=== PATIENT | female | born 1930 | race Caucasian/White ===

== ENCOUNTER 2017-01-26 18:32 | Inpatient (IN) | payer OTHER ==
[2017-01-26] MEDS ORDERED: SODIUM CHLORIDE 1,000 ML IV ONE (18:52)
--- NOTE | 2017-01-26 18:52 | PDOC ---
History of Present Illness <Cecilio Neely - Last Filed: 01/26/17 20:56> - General History Source: Patient, Family, Old Records Exam Limitations: No Limitations - History of Present Illness Initial Comments: 01/26/17 20:03 The patient is an 86 year old female, with a significant past medical history of asthma, hypertension, hyperlipidemia, diabetes, PUD on PPI, osteoarthritis and dementia, who presents to the emergency department with two episodes of rectal bleeding within the past 2 hours. The patient additionally reports feeling lightheaded. The patient was at her normal baseline earlier today and states that this has never happened before. No history of any prior GI bleeds. The patient denies fever, chills, nausea, vomiting, diarrhea or any abdominal pain. The patient is on aspirin daily. The patient lives at home with family. The patients primary language is Georgian, patients family is at the bedside translating. Allergies: Penicillins, Fish Containing Products. Past Surgical History: None reported. Social History: Former smoker (quit in 1969). Denies alcohol or drug use. PCP: Dr. Ferreira <Marjorie Britt - Last Filed: 01/26/17 23:27> - General Chief Complaint: Rectal Bleed Stated Complaint: RECTAL BLEED Time Seen by Provider: 01/26/17 18:49 Past History - Past Medical History Anemia: No Asthma: Yes Cancer: No Cardiac Disorders: No CVA: No COPD: No CHF: No Dementia: No Diabetes: Yes (TYPE II) GI Disorders: Yes (ON RANEXA AND PANCREATIC ENZYMES) Disorders: No HTN: Yes Hypercholesterolemia: Yes Liver Disease: No Seizures: No Thyroid Disease: No - Surgical History Abdominal Surgery: No Appendectomy: No Cardiac Surgery: No Cholecystectomy: No Lung Surgery: No Neurologic Surgery: No Orthopedic Surgery: No - Immunization History Immunization Up to Date: Yes - Psycho/Social/Smoking Cessation Hx Anxiety: No Suicidal Ideation: No Smoking Status: No Smoking History: Former smoker Have you smoked in the past 12 months: No Number of Cigarettes Smoked Daily: 0 If you are a former smoker, when did you quit?: 1969 Information on smoking cessation initiated: No Hx Alcohol Use: No Drug/Substance Use Hx: No Substance Use Type: None Hx Substance Use Treatment: No <Cecilio Neely - Last Filed: 01/26/17 20:56> <Marjorie Britt - Last Filed: 01/26/17 23:27> - Past Medical History Allergies/Adverse Reactions: Allergies Allergy/AdvReac Type Severity Reaction Status Date / Time Fish Containing Products Allergy Unknown Verified 01/26/17 18:42 Penicillins Allergy Itching Verified 01/26/17 18:42 Home Medications: Ambulatory Orders Acetaminophen [Tylenol Extra Strength] 500 mg PO QID PRN #0 05/24/15 Albuterol Sulfate Inhaler - [Ventolin HFA Inhaler -] 2 inh PO Q4H PRN #0 Amlodipine Besylate [Norvasc -] 5 mg PO DAILY #0 05/24/15 Aspirin [Aspirin EC] 81 mg PO DAILY #0 05/24/15 Atorvastatin Ca [Lipitor] 40 mg PO HS #0 05/24/15 Calcium Carbonate/Vitamin D3 [Calcium 500-Vit D3 200 Caplet] 1 each PO BID #0 05/24/15 Ergocalciferol (Vitamin D2) [Drisdol] 50,000 units PO WEEKLY #0 05/24/15 Linaclotide [Linzess] 145 mcg PO DAILY #0 05/24/15 Memantine HCl [Namenda Xr] 7 mg PO DAILY #0 05/24/15 Mirabegron [Myrbetriq] 25 mg PO DAILY #0 05/24/15 Olmesartan Medoxomil [Benicar -] 20 mg PO DAILY #0 05/24/15 Omeprazole [Prilosec] 20 mg PO BID #0 05/24/15 Ranolazine [Ranexa] 1,000 mg PO Q12H #0 05/24/15 Sitagliptin Phosphate [Januvia] 100 mg PO DAILY #0 05/24/15 Vilazodone Hydrochloride [Viibryd -] 20 mg PO DAILY #0 05/24/15 Fluticasone/Salmeterol [Advair Hfa 230-21 Mcg Inhaler] 2 inh PO BID 10/16/15 Lipase/Protease/Amylase [Creon Dr 24,000 Units Capsule] 1 each PO BID 10/16/15 Meclizine HCl [Antivert -] 25 mg PO QID PRN #28 tablet 10/16/15 Metoprolol Succinate [Toprol Xl] 25 mg PO DAILY 10/16/15 Montelukast Na [Singulair -] 10 mg PO DAILY 10/16/15 Psyllium Husk/Aspartame [Metamucil Powder] 1 tsp PO ASDIR 10/16/15 Review of Systems - Review of Systems Constitutional: No: Chills, Fever Cardiac (ROS): Yes: Lightheadedness. No: Syncope ABD/GI: Yes: See HPI. No: Nausea, Vomiting : No: Dysuria Neurological: No: Headache All Other Systems: Reviewed and Negative <Cecilio Neely - Last Filed: 01/26/17 20:56> *Physical Exam - Vital Signs Last Vital Signs Temp Pulse Resp BP Pulse Ox 97.8 F 94 H 22 153/93 97 01/26/17 18:43 01/26/17 18:43 01/26/17 18:43 01/26/17 18:43 01/26/17 18:43 <Cecilio Neely - Last Filed: 01/26/17 20:56> - Vital Signs Last Vital Signs Temp Pulse Resp BP Pulse Ox 97.8 F 94 H 22 153/93 97 01/26/17 18:43 01/26/17 18:43 01/26/17 18:43 01/26/17 18:43 01/26/17 18:43 - Physical Exam Comments: 01/26/17 19:06 GENERAL: The patient is awake, alert, and fully oriented, in no acute distress. HEAD: Normal with no signs of trauma. EYES: Pupils equal, round and reactive to light, extraocular movements intact, sclera anicteric, conjunctiva clear with no pallor. ENT: Dry mucous membranes. Ears normal, nares patent, oropharynx clear without blood or exudates. NECK: Normal range of motion, supple without lymphadenopathy, JVD, or masses. LUNGS: Breath sounds equal, clear to auscultation bilaterally. No wheeze/ crackles. HEART: Regular rate and rhythm, normal S1 and S2 without murmur or rub. ABDOMEN: Diffuse abdominal discomfort. Soft/nondistended. BS wnl. No guarding or rebound. No palpable masses. No hepatosplenomegaly. EXTREMITIES: Normal range of motion, no edema. No clubbing or cyanosis. No cords , erythema, or tenderness. NEUROLOGICAL: Cranial nerves II through XII grossly intact. Normal speech, gait deferred. PSYCH: Normal mood, normal affect. SKIN: Warm, dry, normal turgor, no rashes or lesions noted. RECTAL EXAM: Gross red blood visualized in the rectum. <Marjorie Britt - Last Filed: 01/26/17 23:27> Heart Score/ECG Review #1 ECG reviewed & interpreted by me at: 18:55 General ECG Interpretation: Sinus Rhythm, Normal Rate (91), Normal Intervals ( LVH), No acute ischemic changes <Cecilio Neely - Last Filed: 01/26/17 20:56> ED Treatment Course - LABORATORY CBC & Chemistry Diagram: 01/26/17 20:17 01/26/17 18:52 - RADIOLOGY Radiology Studies Ordered: Category Date Time Status CHEST X-RAY PORTABLE* [RAD] Stat Radiology 01/26/17 18:52 Ordered <Cecilio Neely - Last Filed: 01/26/17 20:56> - LABORATORY CBC & Chemistry Diagram: 01/26/17 20:17 01/26/17 18:52 <Marjorie Britt - Last Filed: 01/26/17 23:27> Medical Decision Making - Critical Care Time Total Critical Care Time (minutes): 35 Critical Care Statement: The care of this patient involved high complexity decision making to prevent further life threatening deterioration of the patient 's condition and/or to evalute & treat vital organ system(s) failure or risk of failure. - Medical Decision Making 01/26/17 19:08 A portion of this note was documented by scribe services under my direction. I have reviewed the details of the note, within reason, and agree with the documentation with the following case summary and management plan written by me. 86-year-old female with multiple medical problems including PUD on PPI, heart disease on aspirin presents with 2 episodes of bright red blood per rectum with blood clots over the last 1-1.5 hours, no associated abdominal pain, positive lightheadedness. No known history of GI bleed or abdominal surgeries. Heart rate 90, blood pressure within normal limits. Abdomen soft and nondistended, no focal peritoneal findings, bright red blood visible per rectum. No obvious hemorrhoids. 86-year-old female with lower GI bleed, mild tachycardia but maintaining blood pressure at this time. Seems most consistent with diverticulosis, rule out upper GI bleed. Placed immediately on monitor and IV access obtained EKG is nonischemic Check labs start PPI, transfuse platelets given active bleeding on aspirin Close monitoring, will need admission, GI consult, possible ICU depending on workup and reassessments 01/26/17 20:41 Hemoglobin 11.9, previously 12.8 and 2015. BUN 19, creatinine normal. Had one further episode of bright red blood per rectum in the ED, low volume. Remained hemodynamically stable throughout. Began complaining of some abdominal discomfort, treated with morphine and will check CT of the abdomen and pelvis. Will proceed with admission, simply hospitalist covering Dr. Ferreira's. 01/26/17 20:55 Accepted for inpatient med/surg by Sandra/Paresh. Awaiting CTAP, platelets. GI budget controller (John Paul) consulted <Cecilio Neely - Last Filed: 01/26/17 20:56> - Medical Decision Making 01/26/17 23:27 EXAM: CT ABDOMEN & PELVIS W/O CONTR Reviewed By: Dr. Kendell Lau IMPRESSION: Diverticulosis without diverticulitis. No discrete evidence of GI bleed. <Marjorie Britt - Last Filed: 01/26/17 23:27> *DC/Admit/Observation/Transfer - Discharge Dispostion Admit: Yes <Cecilio Neely - Last Filed: 01/26/17 20:56> - Attestations Scribe Attestion: 01/26/17 19:04 Documentation prepared by Marjorie Britt, acting as medical manager for Cecilio Neely MD. <Marjorie Britt - Last Filed: 01/26/17 23:27> Diagnosis at time of Disposition: Lower GI hemorrhage - Referrals
[2017-01-26] MEDS ORDERED: PANTOPRAZOLE SODIUM 40 MG in SODIUM CHLORIDE 100 ML IVPB ONE (19:05)
[2017-01-26] MEDS ORDERED: PANTOPRAZOLE SODIUM 100 ML IVPB ONE (19:10)
[2017-01-26 19:40] LABS: BILIRUBIN,TOTAL 0.3 mg/dL (0.2-1.0); CALCIUM 8.7 mg/dL (8.5-10.1); CREATININE 0.9 mg/dL (0.55-1.02)
[2017-01-26 19:42] LABS: TOT PROT 7.9 g/dl (6.4-8.2)
[2017-01-26 20:28] LABS: TROPONIN I < 0.02 ng/ml (0.00-0.05)
[2017-01-26 20:35] LABS: BASOPHIL 0.5 % (0-2.0); MCH 32.7 pg (25.7-33.7); MCHC 33.6 g/dl (32.0-36.0); MEAN CELL VOLUME 97.3 fl (80-96); MEAN PLT VOLUME 7.4 fl (7.5-11.1); NEUTROPHILS 75.5 % (42.8-82.8); PLATELET COUNT 279 K/MM3 (134-434); RDW 13.5 % (11.6-15.6); WHITE BLOOD COUNT 10.4 K/mm3 (4.0-10.0)
[2017-01-26] MEDS ORDERED: ONDANSETRON 4 MG/2 ML VIAL IVPUSH ONE (20:39)
[2017-01-26] MEDS ORDERED: morphine CARPU-JECT 4 MG/1 ML DISP.SYRIN IVPUSH ONE (20:39)
[2017-01-26] MEDS ORDERED: morphine CARPU-JECT 4 MG/1 ML DISP.SYRIN ONE (20:43)
[2017-01-26] MEDS ORDERED: ONDANSETRON 4 MG/2 ML VIAL ONE (20:44)
[2017-01-26 20:49] LABS: INR 1.07 (0.82-1.09); PROTHROMBIN TIME (PATIENT) 11.8 SEC (9.98-11.88)
--- NOTE | 2017-01-26 20:52 | HP ---
CHIEF COMPLAINT: Rectal Bleeding, Abdominal Pain PCP: Dr. Alina Means HISTORY OF PRESENT ILLNESS: This is a 86 y/o woman with a past medical history of Asthma, HTN, HLD, DM, PUD (on PPI), OA, Dementia. Herpes Zoster (left flank). Who presents to the emergency department with her daughter for carl rectal bleeding with clots x earlier this evening. Patient is Belarusian speaking and has Dementia. Her daughter translated at bedside and provided the HPI. Per daughter, patient reports having several episodes of bright red blood without abdominal pain or cramping. Patient reports the abdominal pain began while in the ED. The patient denies fever, chills, cough, SOB, dizziness, CP, N/V, constipation, dysuria. Per hospital records patient had a Colonscopy 2006- negative, EGD 2010- negative. The daughter that is here with the mother is unaware of any recent colonoscopy or EGD. ER course was notable for: (1) CTAP- pending (2) NS bolus, Protonix IVPB given in ED (3) H/H no significant change from baseline Recent Travel: None PAST MEDICAL HISTORY: See HPI PAST SURGICAL HISTORY: Colonoscopy EGD Childbirth Social History: Smoking: Former Alcohol: None Drugs: None Family History: Father: Hypertension Mother: Hypertension Allergies Fish Containing Products Allergy (Unknown, Verified 01/26/17 18:42) Penicillins Allergy (Verified 01/26/17 18:42) Itching HOME MEDICATIONS: Home Medications Medication Instructions Recorded Acetaminophen [Tylenol Extra 500 mg PO QID PRN #0 05/24/15 Strength] Albuterol Sulfate Inhaler - 2 inh PO Q4H PRN #0 05/24/15 [Ventolin HFA Inhaler -] Amlodipine Besylate [Norvasc -] 5 mg PO DAILY #0 05/24/15 Aspirin [Aspirin EC] 81 mg PO DAILY #0 05/24/15 Atorvastatin Ca [Lipitor] 40 mg PO HS #0 05/24/15 Calcium Carbonate/Vitamin D3 1 each PO BID #0 05/24/15 [Calcium 500-Vit D3 200 Caplet] Ergocalciferol (Vitamin D2) 50,000 units PO WEEKLY #0 05/24/15 [Drisdol] Linaclotide [Linzess] 145 mcg PO DAILY #0 05/24/15 Memantine HCl [Namenda Xr] 7 mg PO DAILY #0 05/24/15 Mirabegron [Myrbetriq] 25 mg PO DAILY #0 05/24/15 Olmesartan Medoxomil [Benicar -] 20 mg PO DAILY #0 05/24/15 Omeprazole [Prilosec] 20 mg PO BID #0 05/24/15 Ranolazine [Ranexa] 1,000 mg PO Q12H #0 05/24/15 Sitagliptin Phosphate [Januvia] 100 mg PO DAILY #0 05/24/15 Vilazodone Hydrochloride [Viibryd 20 mg PO DAILY #0 05/24/15 -] Fluticasone/Salmeterol [Advair Hfa 2 inh PO BID 10/16/15 230-21 Mcg Inhaler] Lipase/Protease/Amylase [Creon Dr 1 each PO BID 10/16/15 24,000 Units Capsule] Meclizine HCl [Antivert -] 25 mg PO QID PRN #28 tablet 10/16/15 Metoprolol Succinate [Toprol Xl] 25 mg PO DAILY 10/16/15 Montelukast Na [Singulair -] 10 mg PO DAILY 10/16/15 Psyllium Husk/Aspartame [Metamucil 1 tsp PO ASDIR 10/16/15 Powder] REVIEW OF SYSTEMS Limited due to Dementia Hx CONSTITUTIONAL: Absent: fever, chills, diaphoresis, generalized weakness, malaise, loss of appetite, weight change HEENT: Absent: rhinorrhea, nasal congestion, throat pain, throat swelling, difficulty swallowing, mouth swelling, ear pain, eye pain, visual changes CARDIOVASCULAR: Absent: chest pain, syncope, palpitations, irregular heart rate, lightheadedness , peripheral edema RESPIRATORY: Absent: cough, shortness of breath, dyspnea with exertion, orthopnea, wheezing, stridor, hemoptysis GASTROINTESTINAL: abdominal pain, hematochezia Absent: abdominal distension, nausea, vomiting, diarrhea, constipation, melena GENITOURINARY: Absent: dysuria, frequency, urgency, hesitancy, hematuria, flank pain, genital pain MUSCULOSKELETAL: Absent: myalgia, arthralgia, joint swelling, back pain, neck pain SKIN: Absent: rash, itching, pallor HEMATOLOGIC/IMMUNOLOGIC: Absent: easy bleeding, easy bruising, lymphadenopathy, frequent infections ENDOCRINE: Absent: unexplained weight gain, unexplained weight loss, heat intolerance, cold intolerance NEUROLOGIC: Absent: headache, focal weakness or paresthesias, dizziness, unsteady gait, seizure, mental status changes, bladder or bowel incontinence PSYCHIATRIC: Absent: anxiety, depression, suicidal or homicidal ideation, hallucinations. PHYSICAL EXAMINATION Vital Signs - 24 hr 01/26/17 01/26/17 18:43 19:47 Temperature 97.8 F Pulse Rate 94 H Pulse Rate [ 89 Apical] Respiratory 22 24 Rate Blood Pressure 153/93 O2 Sat by Pulse 97 98 Oximetry (%) GENERAL: Awake, alert, and oriented to baseline, in no acute distress. HEAD: Normal with no signs of trauma. EYES: Pupils equal, round and reactive to light, extraocular movements intact, sclera anicteric, conjunctiva clear. No lid lag. EARS, NOSE, THROAT: Ears normal, nares patent, oropharynx clear without exudates. Moist mucous membranes. NECK: Normal range of motion, supple without lymphadenopathy, JVD, or masses. LUNGS: Breath sounds equal, clear to auscultation bilaterally. No wheezes, and no crackles. No accessory muscle use. HEART: Regular rate and rhythm, normal S1 and S2 without murmur, rub or gallop. ABDOMEN: Soft, generalized tenderness, distended, hypoactive bowel sounds, + guarding to RMQ, RLQ, no rebound, no masses. No hepatomegaly or splenomegaly. MUSCULOSKELETAL: Normal range of motion at all joints. No bony deformities or tenderness. No CVA tenderness. UPPER EXTREMITIES: 2+ pulses, warm, well-perfused. No cyanosis. No clubbing. Cap refill <2 seconds. No peripheral edema. LOWER EXTREMITIES: 2+ pulses, warm, well-perfused. No calf tenderness. No peripheral edema. NEUROLOGICAL: Cranial nerves II-XII intact. Normal speech. Gait not observed. PSYCHIATRIC: Cooperative. Good eye contact. Appropriate mood and affect. SKIN: Warm, dry, normal turgor, no rashes or lesions noted. Laboratory Results - last 24 hr 01/26/17 01/26/17 01/26/17 18:52 18:52 18:52 WBC Cancelled Corrected WBC (auto) Cancelled RBC Cancelled Hgb Cancelled Hct Cancelled MCV Cancelled MCHC Cancelled RDW Cancelled Plt Count Cancelled MPV Cancelled Neutrophils % Cancelled Lymphocytes % Cancelled Monocytes % Cancelled Eosinophils % Cancelled Basophils % Cancelled Differential Comment Cancelled Smudge Cells Cancelled Platelet Estimate Cancelled Platelet Comment Cancelled RBC Morphology Cancelled INR Cancelled Sodium 137 Potassium 4.3 Chloride 102 Carbon Dioxide 27 Anion Gap 8 BUN 19 H D Creatinine 0.9 Creat Clearance w eGFR 59.23 Random Glucose 222 H D Calcium 8.7 Total Bilirubin 0.3 AST 20 D ALT 15 D Alkaline Phosphatase 84 D Creatine Kinase Troponin I Total Protein 7.9 Albumin 4.0 01/26/17 01/26/17 01/26/17 18:52 20:17 20:17 WBC 10.4 H D Corrected WBC (auto) RBC 3.63 Hgb 11.9 Hct 35.4 MCV 97.3 H MCHC 33.6 RDW 13.5 Plt Count 279 MPV 7.4 L Neutrophils % 75.5 Lymphocytes % 15.1 D Monocytes % 7.9 Eosinophils % 1.0 Basophils % 0.5 Differential Comment Smudge Cells Platelet Estimate Platelet Comment RBC Morphology INR 1.07 Sodium Potassium Chloride Carbon Dioxide Anion Gap BUN Creatinine Creat Clearance w eGFR Random Glucose Calcium Total Bilirubin AST ALT Alkaline Phosphatase Creatine Kinase 79 Troponin I < 0.02 Total Protein Albumin ASSESSMENT/PLAN: This is a 86 y/o woman with a PMHx of: Asthma, HTN, HLD, DM, PUD, OA, Dementia, Herpes Zoster (left flank). Presents to the ED with bright red rectal bleeding with clots. Admitted for Lower GI Bleed for further evaluation of their emergent condition. Plan: 1. Lower GI Bleed - Likely secondary to Diverticulosis - CTAP- pending - IVF, Protonix given in ED - Platelets pending 2/2 Chronic ASA therapy - Appreciate GI Consult - NPO - Continue IVF - PPI - Stool Occult-pending 2. Abdominal Pain - See Above - Morphine Sulfate given in ED - Pain Mgmt prn 3. Hypertension - Monitor BP - Will hold BP meds for now 4. Diabetes Mellitus - BGMs - ISS - Hold home meds 5. Dementia - Hold meds for now, will resume pending GI eval 6. FEN - NS@75cc/hr - Replete lytes prn - NPO 7. DVT Prophylaxis - OOB - SCDs - Hold ACs secondary to GI Bleed Code Status: Full Code Problem List - Problem (1) Lower GI hemorrhage Code(s): K92.2 - GASTROINTESTINAL HEMORRHAGE, UNSPECIFIED (2) Abdominal pain Code(s): R10.9 - UNSPECIFIED ABDOMINAL PAIN Qualifiers: Abdominal location: right lower quadrant of abdomen (3) Diabetes Code(s): E11.9 - TYPE 2 DIABETES MELLITUS WITHOUT COMPLICATIONS Qualifiers: Diabetes mellitus type: type 2 Diabetes mellitus complication status: without complication (4) Hypertension Code(s): I10 - ESSENTIAL (PRIMARY) HYPERTENSION Qualifiers: Hypertension type: essential hypertension Qualified Code(s): I10 - Essential (primary) hypertension (5) HLD (hyperlipidemia) Code(s): E78.5 - HYPERLIPIDEMIA, UNSPECIFIED (6) Asthma Code(s): J45.909 - UNSPECIFIED ASTHMA, UNCOMPLICATED (7) PUD (peptic ulcer disease) Code(s): K27.9 - PEPTIC ULC, SITE UNSP, UNSP AC OR CHR, W/O HEMOR OR PERF (8) Dementia Code(s): F03.90 - UNSPECIFIED DEMENTIA WITHOUT BEHAVIORAL DISTURBANCE (9) DVT prophylaxis Code(s): EWS3022 - Visit type - Emergency Visit Emergency Visit: Yes ED Registration Date: 01/26/17 Care time: The patient presented to the Emergency Department on the above date and was hospitalized for further evaluation of their emergent condition. - New Patient This patient is new to me today: Yes Date on this admission: 01/26/17 - Critical Care Critical Care patient: No
[2017-01-26] MEDS ORDERED: SODIUM CHLORIDE 1,000 ML IV SCH (23:00)
[2017-01-27 01:23] VITALS: BMI 21.4
[2017-01-27 08:35] LABS: BASOPHIL 0.7 % (0-2.0); MCH 32.8 pg (25.7-33.7); MCHC 33.5 g/dl (32.0-36.0); MEAN CELL VOLUME 98.1 fl (80-96); MEAN PLT VOLUME 7.5 fl (7.5-11.1); PLATELET COUNT 279 K/MM3 (134-434); RDW 13.3 % (11.6-15.6); WHITE BLOOD COUNT 7.2 K/mm3 (4.0-10.0)
[2017-01-27 08:54] LABS: CALCIUM 8.4 mg/dL (8.5-10.1); CREATININE 0.5 mg/dL (0.55-1.02); MAGNESIUM 2.1 mg/dL (1.8-2.4); PHOSPHOROUS 3.1 mg/dL (2.5-4.9)
[2017-01-27] MEDS ORDERED: PANTOPRAZOLE SODIUM 100 ML IVPB SCH ×2 (10:00)
[2017-01-27 11:01] LABS: BASOPHIL 0.6 % (0-2.0); EOSINOPHIL 1.5 % (0-4.5); MCH 32.6 pg (25.7-33.7); MCHC 33.3 g/dl (32.0-36.0); MEAN CELL VOLUME 98.1 fl (80-96); MEAN PLT VOLUME 7.4 fl (7.5-11.1); NEUTROPHILS 68.7 % (42.8-82.8); PLATELET COUNT 297 K/MM3 (134-434); RDW 13.5 % (11.6-15.6); WHITE BLOOD COUNT 7.4 K/mm3 (4.0-10.0)
--- NOTE | 2017-01-27 11:39 | PN ---
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 I spoke with Dr Scott who will consult on Libby.
--- NOTE | 2017-01-27 11:55 | PN ---
Physical Exam: SUBJECTIVE: Patient seen and examined at the bedside, Having increased rectal bleeding with multiple clots. Dr. Denny was consulted by service. However, medical records reveal that patient is patient of Dr Leo and Dr Scott. OBJECTIVE: Vital Signs Period Temp Pulse Resp BP Sys/Nixon Pulse Ox Last 24 Hr 97.6 F-98.2 F 69-132 18-20 120-163/59-90 98 GENERAL: Dutch speaking, hx of dementia, alert to self. HEAD: Normal with no signs of trauma. EYES: PERRL, extraocular movements intact, sclera anicteric, conjunctiva clear. No ptosis. ENT: Ears normal, nares patent, oropharynx clear without exudates, moist mucous membranes. NECK: Trachea midline, full range of motion, supple. LUNGS: no accessory muscle use. HEART: Sinus tacy at 132 ABDOMEN: Soft, nontender, nondistended, generalized tenderness, distended, hypoactive bowel sounds EXTREMITIES: no edema. NEUROLOGICAL: Normal speech, gait not observed. PSYCH: hx of dementia Laboratory Results - last 24 hr 01/27/17 01/27/17 01/27/17 07:30 07:30 10:42 WBC 7.2 D 7.4 RBC 3.17 L 3.19 L Hgb 10.4 L D 10.4 L Hct 31.1 L 31.3 L MCV 98.1 H 98.1 H MCHC 33.5 33.3 RDW 13.3 13.5 Plt Count 279 297 MPV 7.5 7.4 L Neutrophils % 69.0 68.7 Lymphocytes % 20.8 D 21.2 Monocytes % 7.5 8.0 Eosinophils % 2.0 D 1.5 Basophils % 0.7 0.6 Sodium 145 Potassium 4.0 Chloride 109 H Carbon Dioxide 30 Anion Gap 6 L BUN 14 D Creatinine 0.5 L D Random Glucose 85 D Calcium 8.4 L Phosphorus 3.1 Magnesium 2.1 Active Medications Generic Name Dose Route Start Last Admin Trade Name Freq PRN Reason Stop Dose Admin Sodium Chloride 1,000 mls @ 75 mls/hr 01/26/17 23:00 Normal Saline - IV ASDIR JARETH Pantoprazole Sodium 100 mls @ 200 mls/hr 01/27/17 10:00 01/27/17 09:30 Protonix 40mg Ivpb (Pre-Docked) IVPB 200 mls/hr BID JARETH Administration ASSESSMENT/PLAN: Patient is a 86 year old female with a significant past medical history of Asthma, hypertension, HLD, diabetes, dementia. Herpes Zoster (left flank). She presents to the ED on 01/26/2017 with carl rectal bleeding bright red blood without abdominal pain or cramping. Per hospital records patient had a Colonoscopy in 2006, negative and an EGD 2010, which was also negative. Patient to be transferred to the ICU due to increased rectal bleeding with tachycardia. Daughter Klaudia informed that patient was transferred to ICU. Daughter Klaudia denies that pt ever had an TN. GI: Lower GI Bleed/Abdominal pain- acute Assessment/Plan: On NS @75 cc/hr Worsening rectal bleed wit numerous clots, pt transferred to ICU for closer monitoring H/H remained stable post bleed, will recheck at 1pm type and screen, transfuse if hmg/hct falls CTAP pending read Protonix increased to BID, will start protonix drip 1 units of platelets administered overnight for shelter ASA use NPO GI consulted and following Cardiology: Hypertension Assessment/Plan: Monitor BP BP meds on hold since NPO Endocrine: Diabetes Mellitus Assessment/Plan: monitor BGMS q 6 while NPO F.E.N. Fluids: Normal saline @100cc/hr Repeat CBC at 1pm NPO Protonix drip Prophylaxis DVT: SCDs GI: rectal bleed: Protonix drip Disposition: Requires inpatient hospitalization. Full Code Visit type - Emergency Visit Emergency Visit: Yes ED Registration Date: 01/26/17 Care time: The patient presented to the Emergency Department on the above date and was hospitalized for further evaluation of their emergent condition. - New Patient This patient is new to me today: Yes Date on this admission: 01/27/17 - Critical Care Critical Care patient: Yes Total Critical Care Time (in minutes): 45 Critical Care Statement: The care of this patient involved high complexity decision making to prevent further life threatening deterioration of the patient 's condition and/or to evalute & treat vital organ system(s) failure or risk of failure. - Discharge Referral Referred to [facility] No
--- NOTE | 2017-01-27 12:09 | CONSULT ---
Consult Consult Specialty:: PULM/CCM Referred by:: YAA Reason for Consultation:: GI Bleed - History of Present Illness Chief Complaint: GI Bleed History of Present Illness: 86 F, Asthma, HTN, HLD, DM, PUD OA, Dementia. and Herpes Zoster of the left flank. Brought to the ER by her family due to carl red blood with clots per rectum. Initially admitted to the medical floor and then noted to have 3 bloody bowel movements. Slight dropin H&H and tachycardia noted. Patient was subsequently transferred to the ICU for closer monitoring. No reported abdominal pain. CTA: no active bleed, but extensive diverticulosis. 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 Cardio/Vascular: Yes: HTN Gastrointestinal: Yes: Constipation Infectious Disease: Yes: Herpes Zoster (Left lower flank are with erythema based papules) Endocrine: Yes: Diabetes Mellitus - Past Surgical History Past Surgical History: Yes: None - Alcohol/Substance Use Hx Alcohol Use: No History of Substance Use: reports: None - Smoking History Smoking history: Former smoker Have you smoked in the past 12 months: No Aproximately how many cigarettes per day: 0 If you are a former smoker, when did you quit?: 1969 - Social History History of Recent Travel: No Home Medications - Allergies Allergies/Adverse Reactions: Allergies Allergy/AdvReac Type Severity Reaction Status Date / Time Fish Containing Products Allergy Unknown Verified 01/26/17 18:42 Penicillins Allergy Itching Verified 01/26/17 18:42 - Home Medications Home Medications: Ambulatory Orders Acetaminophen [Tylenol Extra Strength] 500 mg PO QID PRN #0 05/24/15 Albuterol Sulfate Inhaler - [Ventolin HFA Inhaler -] 2 inh PO Q4H PRN #0 Amlodipine Besylate [Norvasc -] 5 mg PO DAILY #0 05/24/15 Aspirin [Aspirin EC] 81 mg PO DAILY #0 05/24/15 Atorvastatin Ca [Lipitor] 40 mg PO HS #0 05/24/15 Calcium Carbonate/Vitamin D3 [Calcium 500-Vit D3 200 Caplet] 1 each PO BID #0 05/24/15 Ergocalciferol (Vitamin D2) [Drisdol] 50,000 units PO WEEKLY #0 05/24/15 Linaclotide [Linzess] 145 mcg PO DAILY #0 05/24/15 Memantine HCl [Namenda Xr] 7 mg PO DAILY #0 05/24/15 Mirabegron [Myrbetriq] 25 mg PO DAILY #0 05/24/15 Olmesartan Medoxomil [Benicar -] 20 mg PO DAILY #0 05/24/15 Omeprazole [Prilosec] 20 mg PO BID #0 05/24/15 Ranolazine [Ranexa] 1,000 mg PO Q12H #0 05/24/15 Sitagliptin Phosphate [Januvia] 100 mg PO DAILY #0 05/24/15 Vilazodone Hydrochloride [Viibryd -] 20 mg PO DAILY #0 05/24/15 Fluticasone/Salmeterol [Advair Hfa 230-21 Mcg Inhaler] 2 inh PO BID 10/16/15 Lipase/Protease/Amylase [Ingrid العلي 24,000 Units Capsule] 1 each PO BID 10/16/15 Meclizine HCl [Antivert -] 25 mg PO QID PRN #28 tablet 10/16/15 Metoprolol Succinate [Toprol Xl] 25 mg PO DAILY 10/16/15 Montelukast Na [Singulair -] 10 mg PO DAILY 10/16/15 Psyllium Husk/Aspartame [Metamucil Powder] 1 tsp PO ASDIR 10/16/15 Family Disease History - Family Disease History Family Disease History: Other: Father (), Mother () Review of Systems Unable to obtain ROS, reason: unable to obtain Physical Exam Vital Signs: Vital Signs Temperature 97.6 F 01/27/17 08:56 Pulse Rate 132 H 01/27/17 11:05 Respiratory Rate 20 01/27/17 11:05 Blood Pressure 143/90 01/27/17 11:05 O2 Sat by Pulse Oximetry (%) 98 01/26/17 22:13 Constitutional: Yes: No Distress, Thin Eyes: Yes: Conjunctiva Clear, EOM Intact. No: Sclera Icterus HENT: Yes: Atraumatic, Normocephalic Neck: Yes: Supple, Trachea Midline Cardiovascular: Yes: Tachycardia Respiratory: Yes: CTA Bilaterally. No: Accessory Muscle Use, Rales, Rhonchi, Stridor, Tachypnea, Wheezes Gastrointestinal: Yes: Normal Bowel Sounds, Soft, Rectal Bleeding. No: Palpable Mass, Pulsatile Mass, Tenderness, Epigastrium, Tenderness, Rebound ...Rectal Exam: Yes: Guaiac Positive Musculoskeletal: Yes: WNL Extremities: Yes: WNL Edema: No Peripheral Pulses WNL: Yes Integumentary: Yes: WNL Neurological: Yes: Alert Psychiatric: Yes: Alert Labs: CBC, BMP 01/27/17 10:42 01/27/17 07:30 Imaging - Results Chest X-ray: Report Reviewed, Image Reviewed Cat Scan: Report Reviewed, Image Reviewed Assessment/Plan IMP: Acute GI Bleed -> Suspected Lower due to Diverticulosis Asthma HTN HLD DM PUD OA Dementia Herpes Zoster of the left flank PLAN: Follow H&H Normal transfusion thresholds IVF NPO Strict I&O BD TX PRN GI evaluation Ensure adequate IV access ICU Monitoring Thank you. Dr Lai CCTime 35"
[2017-01-27 13:01] LABS: MCHC 33.6 g/dl (32.0-36.0); MEAN CELL VOLUME 98.4 fl (80-96); MEAN PLT VOLUME 7.1 fl (7.5-11.1); PLATELET COUNT 266 K/MM3 (134-434); RDW 13.8 % (11.6-15.6)
[2017-01-27] MEDS: SODIUM CHLORIDE 1,000 ML IV SCH (14:00)
[2017-01-27] MEDS: PANTOPRAZOLE SODIUM 80 MG in SODIUM CHLORIDE 100 ML IVPB SCH ×2 (15:00→22:15)
--- NOTE | 2017-01-27 16:59 | CON.GI ---
Consult Consult Specialty:: GI Referred by:: Hospitalist Reason for Consultation:: GI bleed - History of Present Illness Chief Complaint: acute onset of BRBPR History of Present Illness: 86 F with h/o HTN, PUD, DM, HLD, asthma admitted by family with BRBPR noted on the day of admission. She subsequently had 3 bloody BMs on the medical floor and was transfused to ICU. On admission Hgb 11.9. now 9.6. She denies pain, N/ V. States she is hungry. She has had colonoscopy in the past-unclear when. 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 Cardio/Vascular: Yes: HTN Gastrointestinal: Yes: Constipation Infectious Disease: Yes: Herpes Zoster (Left lower flank are with erythema based papules) Endocrine: Yes: Diabetes Mellitus - Past Surgical History Past Surgical History: Yes: None - Alcohol/Substance Use Hx Alcohol Use: No History of Substance Use: reports: None - Smoking History Smoking history: Former smoker Have you smoked in the past 12 months: No Aproximately how many cigarettes per day: 0 If you are a former smoker, when did you quit?: 1969 - Social History History of Recent Travel: No Home Medications - Allergies Allergies/Adverse Reactions: Allergies Allergy/AdvReac Type Severity Reaction Status Date / Time Fish Containing Products Allergy Unknown Verified 01/26/17 18:42 Penicillins Allergy Itching Verified 01/26/17 18:42 - Home Medications Home Medications: Ambulatory Orders Acetaminophen [Tylenol Extra Strength] 500 mg PO QID PRN #0 05/24/15 Amlodipine Besylate [Norvasc -] 5 mg PO DAILY #0 05/24/15 Aspirin [Aspirin EC] 81 mg PO DAILY #0 05/24/15 Atorvastatin Ca [Lipitor] 40 mg PO HS #0 05/24/15 Memantine HCl [Namenda Xr] 7 mg PO DAILY #0 05/24/15 Olmesartan Medoxomil [Benicar -] 20 mg PO DAILY #0 05/24/15 Omeprazole [Prilosec] 20 mg PO BID #0 05/24/15 Lipase/Protease/Amylase [Creon Dr 24,000 Units Capsule] 1 each PO BID 10/16/15 Meclizine HCl [Antivert -] 25 mg PO QID PRN #28 tablet 10/16/15 Metoprolol Succinate [Toprol Xl] 25 mg PO DAILY 10/16/15 Family Disease History - Family Disease History Family Disease History: Other: Father (), Mother () Physical Exam-GI Vital Signs: Vital Signs Temperature 97.6 F 01/27/17 08:56 Pulse Rate 132 H 01/27/17 11:05 Respiratory Rate 20 01/27/17 11:05 Blood Pressure 143/90 01/27/17 11:05 O2 Sat by Pulse Oximetry (%) 98 01/26/17 22:13 Constitutional: Yes: Well Nourished HENT: Yes: Normocephalic Neck: Yes: Trachea Midline Cardiovascular: Yes: Regular Rate and Rhythm Respiratory: Yes: CTA Bilaterally Gastrointestinal Inspection: Yes: WNL ...Auscultate: Yes: Normoactive Bowel Sounds ...Palpate: Yes: Soft. No: Tenderness (d) Labs: CBC, BMP 01/27/17 12:54 01/27/17 07:30 INR, PTT INR 1.07 (0.82-1.09) 01/26/17 20:17 Imaging - Results Cat Scan: Report Reviewed (Extensive diverticulosis with no diverticulitis. CTA with no extravasation of contrast.) Assessment/Plan 86 F with above history here with likely diverticular bleed. No bleed since transfer to ICU. Follow H/H If significant bleeding occurs may need to scope Clear liquids Transfuse if Hgb <8 80% if diverticular bleeds stop spontaneously. If bleeding continues will do therapeutic colonoscopy
[2017-01-27] MEDS: METOPROLOL TARTRATE 5 MG/5 ML VIAL IVPB SCH ×3 (18:08→18:33)
[2017-01-27 19:00] LABS: MCH 33.3 pg (25.7-33.7); MCHC 33.9 g/dl (32.0-36.0); MEAN CELL VOLUME 98.2 fl (80-96); MEAN PLT VOLUME 7.6 fl (7.5-11.1); PLATELET COUNT 269 K/MM3 (134-434); RDW 13.7 % (11.6-15.6); WHITE BLOOD COUNT 6.5 K/mm3 (4.0-10.0)
--- NOTE | 2017-01-27 20:23 | EKG ---
Test Reason : Blood Pressure : / mmHG Vent. Rate : 091 BPM Atrial Rate : 091 BPM P-R Int : 160 ms QRS Dur : 086 ms QT Int : 372 ms P-R-T Axes : 060 -05 054 degrees QTc Int : 457 ms NORMAL SINUS RHYTHM MODERATE VOLTAGE CRITERIA FOR LVH, MAY BE NORMAL VARIANT BORDERLINE ECG WHEN COMPARED WITH ECG OF 16-OCT-2015 16:16, NO SIGNIFICANT CHANGE WAS FOUND Confirmed by DARRIUS ROUSSEAU, ALESHA ([id number]) on 01/27/2017 8:23:40 PM Referred By: Confirmed By:ALESHA RIZO MD
[2017-01-28] MEDS: METOPROLOL TARTRATE 5 MG/5 ML VIAL IVPB SCH ×2 (00:25→06:53)
[2017-01-28 06:11] LABS: BASOPHIL 0.6 % (0-2.0); EOSINOPHIL 2.6 % (0-4.5); MCH 32.2 pg (25.7-33.7); MCHC 33.9 g/dl (32.0-36.0); MEAN PLT VOLUME 7.9 fl (7.5-11.1); NEUTROPHILS 73.3 % (42.8-82.8); PLATELET COUNT 269 K/MM3 (134-434); RDW 15.4 % (11.6-15.6); WHITE BLOOD COUNT 8.8 K/mm3 (4.0-10.0)
[2017-01-28 06:30] LABS: ANION GAP 6 (8-16); CO2 28 mmol/L (21-32); CREATININE 0.4 mg/dL (0.55-1.02); GLUCOSE,RANDOM 87 mg/dL (74-106); MAGNESIUM 1.9 mg/dL (1.8-2.4); PHOSPHOROUS 2.8 mg/dL (2.5-4.9); SGOT/AST 12 U/L (15-37); SGPT/ALT 12 U/L (12-78)
[2017-01-28 06:32] LABS: ALK PHOS 57 U/L (45-117); BILIRUBIN,TOTAL 0.5 mg/dL (0.2-1.0); TOT PROT 5.7 g/dl (6.4-8.2)
--- NOTE | 2017-01-28 11:41 | PN ---
Physical Exam: SUBJECTIVE: Patient seen and examined at bedside in ICU.A febrile overnight & hemodynamically stable. States abdominal tenderness is improved and she feels better than yesterday. Tolerating clear liquid diet well. Ambulates to bathroom without problems. OBJECTIVE: Vital Signs Period Temp Pulse Resp BP Sys/Nixon Pulse Ox Last 24 Hr 96.9 F-98.2 F 61-90 12-22 103-148/48-93 91-100 GENERAL: Awake and alert, Oriented to person & place but not oriented to situation. In no acute distress. HEENT: Atraumatic, EOMI, PERRLA, Moist membranes, no lymphadenopathy LUNGS: Breath sounds equal, clear to auscultation bilaterally HEART: Regular rate and rhythm, S1, S2 without murmur, rub or gallop ABDOMEN: Soft, nontender, nondistended, normoactive bowel sounds EXTREMITIES: 2+ pulses, warm, well-perfused, no edema NEUROLOGICAL: Cranial nerves II through XII grossly intact. Normal speech, normal gait. SKIN: Warm, dry, normal turgor, no rashes or lesions noted Laboratory Results - last 24 hr 01/27/17 01/27/17 01/27/17 12:54 12:59 15:00 WBC 9.0 RBC 2.91 L Hgb 9.6 L Hct 28.6 L MCV 98.4 H MCHC 33.6 RDW 13.8 Plt Count 266 MPV 7.1 L Neutrophils % Lymphocytes % Monocytes % Eosinophils % Basophils % Sodium Potassium Chloride Carbon Dioxide Anion Gap BUN Creatinine Creat Clearance w eGFR POC Glucometer 121 Random Glucose Calcium Phosphorus Magnesium Total Bilirubin AST ALT Alkaline Phosphatase Troponin I 0.02 Total Protein Albumin 01/27/17 01/27/17 01/28/17 18:40 23:58 05:00 WBC 6.5 RBC 2.51 L Hgb 8.4 L D Hct 24.6 L MCV 98.2 H MCHC 33.9 RDW 13.7 Plt Count 269 MPV 7.6 Neutrophils % Lymphocytes % Monocytes % Eosinophils % Basophils % Sodium 145 Potassium 3.7 Chloride 111 H Carbon Dioxide 28 Anion Gap 6 L BUN 11 D Creatinine 0.4 L Creat Clearance w eGFR > 60 POC Glucometer 95 Random Glucose 87 Calcium 8.0 L Phosphorus 2.8 Magnesium 1.9 Total Bilirubin 0.5 D AST 12 L D ALT 12 Alkaline Phosphatase 57 D Troponin I Total Protein 5.7 L D Albumin 3.0 L D 01/28/17 01/28/17 05:00 05:47 WBC 8.8 D RBC 2.93 L Hgb 9.4 L D Hct 27.8 L MCV 95.0 MCHC 33.9 RDW 15.4 D Plt Count 269 MPV 7.9 Neutrophils % 73.3 Lymphocytes % 15.2 D Monocytes % 8.3 Eosinophils % 2.6 Basophils % 0.6 Sodium Potassium Chloride Carbon Dioxide Anion Gap BUN Creatinine Creat Clearance w eGFR POC Glucometer 90 Random Glucose Calcium Phosphorus Magnesium Total Bilirubin AST ALT Alkaline Phosphatase Troponin I Total Protein Albumin Active Medications Generic Name Dose Route Start Last Admin Trade Name Freq PRN Reason Stop Dose Admin Sodium Chloride 1,000 mls @ 100 mls/hr 01/27/17 12:18 01/27/17 14:00 Normal Saline - IV 100 mls/hr ASDIR JARETH Administration Pantoprazole Sodium 100 mls @ 200 mls/hr 01/28/17 22:00 Protonix 40mg Ivpb (Pre-Docked) IVPB BID JARETH Metoprolol Succinate 25 mg 01/29/17 10:00 Toprol Xl - PO DAILY JARETH ASSESSMENT/PLAN: 86 year old demale with significant PMH of Asthma, HTN, HLD, DM, PUD (on PPI), OA, Dementia & Herpes Zoster who presented to ICU with acute bleeding from rectum x1 day. Patient also reports diffuse abdominal pain for same timeframe. Abdominal CTA shows extensive diverticulosis. #Acute GI bleed, likely secondary to diverticulosis -PPI -IVF NS@100cc/hr -tolerating clear liquid diet, upgrade as per GI -trend H/H -Received 1unit PRBC thus far -GI following #Hypertension -holding meds at present -can restart Toprol tomorrow #DM -BMG ACHS Prophylaxis -SCD's, PPI -IVF NS@100cc/hr, monitor electrolytes, Clear liquid diet Visit type - Emergency Visit Emergency Visit: Yes ED Registration Date: 01/26/17 Care time: The patient presented to the Emergency Department on the above date and was hospitalized for further evaluation of their emergent condition. - New Patient This patient is new to me today: Yes Date on this admission: 01/28/17 - Critical Care Critical Care patient: Yes Total Critical Care Time (in minutes): 45 Critical Care Statement: The care of this patient involved high complexity decision making to prevent further life threatening deterioration of the patient 's condition and/or to evalute & treat vital organ system(s) failure or risk of failure.
--- NOTE | 2017-01-28 11:59 | PN ---
Teaching Attending Note Name of Resident: Carmelo Solorzano ATTENDING PHYSICIAN STATEMENT I saw and evaluated the patient. I reviewed the resident's note and discussed the case with the resident. I agree with the resident's findings and plan as documented. SUBJECTIVE: Pt seen and examined in the ICU. No further bleeding. Denies abdominal pain, nausea or vomiting. Transfused 1 unit PRBC overnight with appropriate response in H/H. OBJECTIVE: Last Vital Signs Temp Pulse Resp BP Pulse Ox 98.2 F 69 16 153/85 91 L 01/28/17 10:00 01/28/17 11:07 01/28/17 10:00 01/28/17 10:00 01/28/17 11:07 Intake & Output 01/25/17 01/26/17 01/27/17 01/28/17 23:59 23:59 23:59 23:59 Intake Total 1300 1560 Output Total 200 Balance 1100 1560 Weight 133 lb 1 oz Gen: NAD at rest Heart: RRR Lung: decreased breath sounds at the bases Abd: soft, nontender Ext: no edema CBC, BMP 01/28/17 05:00 01/28/17 05:00 Active Medications Sodium Chloride (Normal Saline -) 1,000 mls @ 100 mls/hr IV ASDIR JARETH Last Admin: 01/27/17 14:00 Dose: 100 mls/hr Pantoprazole Sodium 40 mg/ (Sodium Chloride) 100 mls @ 200 mls/hr IVPB BID JARETH Metoprolol Succinate (Toprol Xl -) 25 mg PO DAILY JARETH ASSESSMENT AND PLAN: GI Bleed Acute Blood Loss Anemia Diverticulosis HTN Hyperlipidemia DM Dementia - monitor H/H - transfuse as needed - can likely stop protonix gtt but will defer to GI - start clears if ok with GI - resume cardiac meds - DVT prophylaxis - can monitor on floor
[2017-01-28] MEDS: SODIUM CHLORIDE 1,000 ML IV SCH (13:31)
[2017-01-28] MEDS ORDERED: SODIUM CHLORIDE 1,000 ML IV SCH (13:55)
[2017-01-28 14:02] LABS: BASOPHIL 0.6 % (0-2.0); EOSINOPHIL 3.2 % (0-4.5); MCHC 33.5 g/dl (32.0-36.0); MEAN CELL VOLUME 95.3 fl (80-96); MEAN PLT VOLUME 7.9 fl (7.5-11.1); NEUTROPHILS 71.2 % (42.8-82.8); PLATELET COUNT 235 K/MM3 (134-434); RDW 15.6 % (11.6-15.6); WHITE BLOOD COUNT 7.4 K/mm3 (4.0-10.0)
--- NOTE | 2017-01-28 15:42 | PN ---
Physical Exam: SUBJECTIVE: Patient seen and examined. She has been transferred from the ICU to a [facility] surgical floor. Family at bedside. No further rectal bleeding, s/p 1 unit of PRBC over night with good effect. As per family, pt is back to her baseline. Patient asking to go home. OBJECTIVE: Vital Signs Period Temp Pulse Resp BP Sys/Nixon Pulse Ox Last 24 Hr 97.0 F-98.2 F 61-95 12-16 103-153/48-93 91-100 GENERAL: Sami speaking, hx of dementia, alert to self. HEAD: Normal with no signs of trauma. EYES: PERRL, extraocular movements intact, sclera anicteric, conjunctiva clear. No ptosis. ENT: Ears normal, nares patent, oropharynx clear without exudates, moist mucous membranes. NECK: Trachea midline, full range of motion, supple. LUNGS: no accessory muscle use. HEART: Sinus tacy at 132 ABDOMEN: Soft, nontender, nondistended, generalized tenderness - no rectal bleeding overnight. EXTREMITIES: no edema. NEUROLOGICAL: Normal speech, gait not observed. PSYCH: hx of dementia 01/28/17 01/28/17 13:30 13:30 WBC 7.4 RBC 3.12 L Hgb 10.0 L Hct 29.7 L MCV 95.3 MCHC 33.5 RDW 15.6 Plt Count 235 MPV 7.9 Neutrophils % 71.2 Lymphocytes % 18.3 D Monocytes % 6.7 Eosinophils % 3.2 Basophils % 0.6 Sodium Potassium Chloride Carbon Dioxide Anion Gap BUN Creatinine Creat Clearance w eGFR POC Glucometer 166 Random Glucose Calcium Phosphorus Magnesium Total Bilirubin AST ALT Alkaline Phosphatase Troponin I Total Protein Albumin Generic Name Dose Route Start Last Admin Trade Name Freq PRN Reason Stop Dose Admin Pantoprazole Sodium 100 mls @ 200 mls/hr 01/28/17 22:00 Protonix 40mg Ivpb (Pre-Docked) IVPB BID JARETH Metoprolol Succinate 25 mg 01/29/17 10:00 Toprol Xl - PO DAILY JARETH ASSESSMENT/PLAN: Patient is a 86 year old female with a significant past medical history of Asthma, hypertension, HLD, diabetes, dementia. Herpes Zoster (left flank). She presents to the ED on 01/26/2017 with carl rectal bleeding bright red blood without abdominal pain or cramping. Per hospital records patient had a Colonoscopy in 2006, negative and an EGD 2010, which was also negative. Patient seen and examined at bedside, febrile overnight, hemodynamically stable s/p 1 unit of PRBC. Was transferred to ICU yesterday after had large episode of rectal bleeding with tachycardia. She is now on a medical surgical floor. She denies abdominal pain, tenderness. Tolerating clear liquid diet. No further rectal bleeding. GI: Lower GI Bleed/Abdominal pain- resolved Assessment/Plan: Was transferred to regular floor today s/p ICU monitoring overnight Remained afebrile overnight and hemodynamically stable. Denies any abdominal pain or tenderness, tolerating clears S/p 1 unit of PRBC, h/h remains stable/improved S/p protonix drip, now on Protonix BID GI following Cardiology: Hypertension Assessment/Plan: Monitor BP Back on PO meds of Toprox XL 25mg daily Endocrine: Diabetes Mellitus Assessment/Plan: Novolog sliding scale, monitor BGMs F.E.N. Fluids: Normal saline @100cc/hr Repeat CBC in the a.m. Clears Prophylaxis DVT: SCDs GI: Protonix BID: advance diet per GI Disposition: Requires inpatient hospitalization. If continues to improve, can d/c tomorrow per GI clearance. Full Code Visit type - Emergency Visit Emergency Visit: Yes ED Registration Date: 01/26/17 Care time: The patient presented to the Emergency Department on the above date and was hospitalized for further evaluation of their emergent condition. - New Patient This patient is new to me today: No - Critical Care Critical Care patient: No - Discharge Referral Referred to [facility] Med P.C.: No
[2017-01-28] MEDS: PANTOPRAZOLE SODIUM 100 ML IVPB SCH (21:17)
[2017-01-28] MEDS ORDERED: PANTOPRAZOLE SODIUM 100 ML IVPB SCH (22:00)
[2017-01-29 08:32] LABS: BASOPHIL 0.5 % (0-2.0); MCH 32.3 pg (25.7-33.7); MEAN CELL VOLUME 95.1 fl (80-96); MEAN PLT VOLUME 7.5 fl (7.5-11.1); NEUTROPHILS 68.9 % (42.8-82.8); PLATELET COUNT 277 K/MM3 (134-434); RDW 15.4 % (11.6-15.6)
[2017-01-29 08:51] LABS: ALBUMIN 3.7 g/dl (3.4-5.0); ANION GAP 8 (8-16); CO2 28 mmol/L (21-32); GLUCOSE,RANDOM 101 mg/dL (74-106); SGOT/AST 13 U/L (15-37); SGPT/ALT 13 U/L (12-78)
[2017-01-29 08:53] LABS: ALK PHOS 67 U/L (45-117); BILIRUBIN,TOTAL 0.4 mg/dL (0.2-1.0); CREATININE 0.5 mg/dL (0.55-1.02); TOT PROT 6.7 g/dl (6.4-8.2)
--- NOTE | 2017-01-29 09:30 | DS ---
Physical Exam: SUBJECTIVE: Patient seen and examined. Tolerating clears, no abdominal pain on exam. Denies nausea/vomiting. OBJECTIVE: Vital Signs Period Temp Pulse Resp BP Sys/Nixon Pulse Ox Last 24 Hr 97.6 F-98.6 F 66-95 16-18 123-156/56-94 91-95 PHYSICAL EXAM GENERAL: Bangladeshi speaking, hx of dementia, alert to self. HEAD: Normal with no signs of trauma. EYES: PERRL, extraocular movements intact, sclera anicteric, conjunctiva clear. No ptosis. ENT: Ears normal, nares patent, oropharynx clear without exudates, moist mucous membranes. NECK: Trachea midline, full range of motion, supple. LUNGS: no accessory muscle use. HEART: Sinus tacy at 132 ABDOMEN: Soft, nontender, non-distended, no tenderness - no rectal bleeding overnight, +bowel sounds, tolerating clears EXTREMITIES: no edema. NEUROLOGICAL: Normal speech, gait not observed. PSYCH: hx of dementia LABS Laboratory Results - last 24 hr 01/28/17 01/28/17 01/28/17 13:30 13:30 16:15 WBC 7.4 RBC 3.12 L Hgb 10.0 L Hct 29.7 L MCV 95.3 MCHC 33.5 RDW 15.6 Plt Count 235 MPV 7.9 Neutrophils % 71.2 Lymphocytes % 18.3 D Monocytes % 6.7 Eosinophils % 3.2 Basophils % 0.6 Sodium Potassium Chloride Carbon Dioxide Anion Gap BUN Creatinine Creat Clearance w eGFR POC Glucometer 166 91 Random Glucose Calcium Total Bilirubin AST ALT Alkaline Phosphatase Total Protein Albumin 01/28/17 01/29/17 01/29/17 21:56 05:38 07:15 WBC 6.0 RBC 3.27 L Hgb 10.6 L Hct 31.1 L MCV 95.1 MCHC 34.0 RDW 15.4 Plt Count 277 MPV 7.5 Neutrophils % 68.9 Lymphocytes % 20.7 Monocytes % 6.9 Eosinophils % 3.0 Basophils % 0.5 Sodium Potassium Chloride Carbon Dioxide Anion Gap BUN Creatinine Creat Clearance w eGFR POC Glucometer 75 91 Random Glucose Calcium Total Bilirubin AST ALT Alkaline Phosphatase Total Protein Albumin 01/29/17 07:15 WBC RBC Hgb Hct MCV MCHC RDW Plt Count MPV Neutrophils % Lymphocytes % Monocytes % Eosinophils % Basophils % Sodium 146 H Potassium 3.5 Chloride 110 H Carbon Dioxide 28 Anion Gap 8 BUN 7 D Creatinine 0.5 L D Creat Clearance w eGFR > 60 POC Glucometer Random Glucose 101 Calcium 9.0 Total Bilirubin 0.4 AST 13 L ALT 13 Alkaline Phosphatase 67 Total Protein 6.7 Albumin 3.7 D HOSPITAL COURSE: Date of Admission:01/26/17 Date of Discharge: 01/29/17 Patient is a 86 year old female with a significant past medical history of Asthma, hypertension, HLD, diabetes, dementia. Herpes Zoster (left flank- currently with no active lesions). She presents to the ED on 01/26/2017 with carl rectal bleeding bright red blood without abdominal pain or cramping. Per hospital records patient had a Colonoscopy in 2006, negative and an EGD 2010, which was also negative. Since the rectal bleeding episode on 01/27, she has had no further bleeding episodes. She is hemodynamically, stable s/p 1 unit of PRBC and tolerating clear liquid diet. She will need follow up with Dr. Scott in 1 week after discharge. Will hold ASA until seen by GI, will order Protonix daily. GI: Lower GI Bleed/Abdominal pain- resolved Assessment/Plan: Remained afebrile overnight and hemodynamically stable. Denies any abdominal pain or tenderness, tolerating clears S/p 1 unit of PRBC, h/h remains stable/improved Will follow up with GI as outpatient Cardiology: Hypertension Assessment/Plan: Monitor BP Back on PO meds of Toprox XL 25mg daily Endocrine: Diabetes Mellitus Assessment/Plan: Novolog sliding scale, monitor BGMs Disposition: Discharge today with outpatient GI follow-up. Full Code. Minutes to complete discharge: 45 Discharge Summary Reason For Visit: LOWER GI HEMORRHAGE Current Active Problems Asthma (Acute) DVT prophylaxis (Acute) Dementia (Acute) HLD (hyperlipidemia) (Acute) Lower GI hemorrhage (Acute) PUD (peptic ulcer disease) (Acute) - Instructions Referrals: Alina Goode MD [Primary Care Provider] - - Home Medications Comprehensive Discharge Medication List: Ambulatory Orders Acetaminophen [Tylenol Extra Strength] 500 mg PO QID PRN #0 05/24/15 Amlodipine Besylate [Norvasc -] 5 mg PO DAILY #0 05/24/15 Aspirin [Aspirin EC] 81 mg PO DAILY #0 05/24/15 Atorvastatin Ca [Lipitor] 40 mg PO HS #0 05/24/15 Memantine HCl [Namenda Xr] 7 mg PO DAILY #0 05/24/15 Olmesartan Medoxomil [Benicar -] 20 mg PO DAILY #0 05/24/15 Omeprazole [Prilosec] 20 mg PO BID #0 05/24/15 Lipase/Protease/Amylase [Ingrid العلي 24,000 Units Capsule] 1 each PO BID 10/16/15 Meclizine HCl [Antivert -] 25 mg PO QID PRN #28 tablet 10/16/15 Metoprolol Succinate [Toprol Xl] 25 mg PO DAILY 10/16/15 This patient is new to me today: No Emergency Visit: Yes ED Registration Date: 01/26/17 Care time: The patient presented to the Emergency Department on the above date and was hospitalized for further evaluation of their emergent condition. Critical Care patient: No - Discharge Referral Referred to [facility] Med P.C.: No
[2017-01-29 09:54] VITALS: BP 142/71; PULSE 89; TEMP 98.3
[2017-01-29] MEDS: PANTOPRAZOLE SODIUM 100 ML IVPB SCH (09:54)
[2017-01-29] MEDS ORDERED: METOPROLOL SUCCINATE 25 MG TAB.SR.24H (FP) PO SCH (10:00)
== END 2017-01-29 12:20 | disposition home or self-care (01) | DRG 378 ==
LOC: JER 18:32 → JERBED 20:56 → J5S 23:06 → JICU 01-27 11:35 → J5S 01-28 13:44
PROVIDERS: ADMIT Internal Medicine; ATTEND Nurse Practitioner Family
PROC: 30233R1 Transfusion of Nonautologous Platelets into Peripheral Vein, Percutaneous Approach (ICD-10-PCS; principal; 2017-01-27)
DX: K92.2 Gastrointestinal hemorrhage, unspecified (principal); D62 Acute posthemorrhagic anemia; I10 Essential (primary) hypertension; E78.5 Hyperlipidemia, unspecified; E11.9 Type 2 diabetes mellitus without complications; F03.90 Unspecified dementia, unspecified severity, without behavioral disturbance, psychotic disturbance, mood disturbance, and anxiety; K27.9 Peptic ulcer, site unspecified, unspecified as acute or chronic, without hemorrhage or perforation; Z87.891 Personal history of nicotine dependence; K57.91 Diverticulosis of intestine, part unspecified, without perforation or abscess with bleeding
CPT/HCPCS: 36415; 36430; 71010-TC; 74178-TC; 80048; 80053; 82272; 82550; 83735; 84100; 84484; 85025; 85027; 85610; 86850; 86900; 86901; 86922; 93005; 93010; 99283-25; P9034; P9058

== ENCOUNTER 2017-02-26 08:56 | Day surgery (SDC) | payer OTHER ==
[2017-02-25 14:48] VITALS: BMI 26.5
[2017-02-26] MEDS ORDERED: LIDOCAINE HCL/PF 2% SDV 5ML VIAL ONE (10:54)
[2017-02-26] MEDS ORDERED: PROPOFOL 20 ML ONE ×2 (10:54)
[2017-02-26] MEDS ORDERED: ESMOLOL HCL 10 ML ONE (11:32)
[2017-02-26 11:55] VITALS: TEMP 97.5
[2017-02-26 12:50] VITALS: BP 127/64; PULSE 66
== END 2017-02-26 12:52 | disposition home or self-care (01) ==
LOC: JASU-ENDO 08:56
PROVIDERS: ATTEND Internal Medicine Gastroenterology
PROC: 0DJD8ZZ Inspection of Lower Intestinal Tract, Via Natural or Artificial Opening Endoscopic (ICD-10-PCS; principal; 2017-02-26 10:00)
DX: D64.9 Anemia, unspecified (principal); Z86.010 Personal history of colon polyps; K57.30 Diverticulosis of large intestine without perforation or abscess without bleeding

== ENCOUNTER 2017-03-16 19:55 | Observation (INO) | payer OTHER ==
[2017-03-16 20:15] VITALS: BMI 28.3
--- NOTE | 2017-03-16 20:37 | PDOC ---
History of Present Illness - History of Present Illness Initial Comments: 03/16/17 20:58 The patient is an 86 year old female with a past medical hx of asthma, hypertension, hyperlipidemia, diabetes, PUD on PPI, osteoarthritis and dementia who presents to the ED s/p unwitnessed fall 45 minutes ago complaining of pain to the occipital region of her head. The patients friend reports she was standing on a stool cleaning the house when she fell onto the floor. The patient was able to get herself up off of the floor. It is uncertain if the patient lost consciousness. She reports her head was bleeding. The patient is not on blood thinners. The patient states she feels very tired. She denies any dizziness, headache, chest pain, SOB She denies any dysuria, hematuria, fever, chills Social: Lives at home alone <Heike Bustos - Last Filed: 03/17/17 01:45> - General History Source: Patient Exam Limitations: No Limitations <Meri Albarran - Last Filed: 03/19/17 11:56> - General Chief Complaint: Injury Stated Complaint: FALL/HEAD INJURY/LIGHTHEADED Time Seen by Provider: 03/16/17 20:12 Past History <Heike Bustos - Last Filed: 03/17/17 01:45> - Past Medical History Anemia: Yes Asthma: Yes Cancer: No Cardiac Disorders: No CVA: No COPD: No CHF: No Dementia: Yes (Alzheimer's) Diabetes: Yes (TYPE II) GI Disorders: Yes (DIVERTICULOSIS) Disorders: No HTN: Yes Hypercholesterolemia: Yes Liver Disease: No Seizures: No Thyroid Disease: No - Surgical History Abdominal Surgery: No Appendectomy: No Cardiac Surgery: No Cholecystectomy: No Lung Surgery: No Neurologic Surgery: No Orthopedic Surgery: No - Immunization History Immunization Up to Date: Yes - Psycho/Social/Smoking Cessation Hx Anxiety: No Suicidal Ideation: No Smoking Status: No Smoking History: Never smoked Have you smoked in the past 12 months: No Number of Cigarettes Smoked Daily: 0 If you are a former smoker, when did you quit?: 1969 Information on smoking cessation initiated: No Hx Alcohol Use: No Drug/Substance Use Hx: No Substance Use Type: None Hx Substance Use Treatment: No <Meri Albarran - Last Filed: 03/19/17 11:56> - Past Medical History Allergies/Adverse Reactions: Allergies Allergy/AdvReac Type Severity Reaction Status Date / Time Fish Containing Products Allergy Unknown Verified 03/16/17 20:10 Penicillins Allergy Itching Verified 03/16/17 20:10 Home Medications: Ambulatory Orders Memantine HCl [Namenda -] 10 mg PO DAILY 03/17/17 Metoprolol Tartrate 25 mg PO DAILY 03/17/17 Olmesartan/Hydrochlorothiazide [Benicar Hct 40-25 mg Tablet] 1 each PO DAILY Review of Systems - Review of Systems Able to Perform ROS?: Yes Comments:: 03/16/17 20:58 GENERAL/CONSTITUTIONAL: +Tired. No: fever, chills, weakness, loss of appetite. HEAD, EYES, EARS, NOSE AND THROAT: +Pain to head. No: change in vision, ear pain , discharge, sore throat, throat swelling. CARDIOVASCULAR: No: chest pain, lightheadedness, palpitations, syncope RESPIRATORY: No: cough, shortness of breath, wheezing, hemoptysis, stridor. GASTROINTESTINAL: No: nausea, vomiting, abdominal cramping, diarrhea, rectal bleeding, constipation. GENITOURINARY: No: dysuria, hematuria, frequency, urgency, flank pain. MUSCULOSKELETAL: No: back pain, neck pain, joint pain, muscle swelling or pain SKIN: No: lesions, pallor, rash or easy bruising. NEUROLOGIC: No: headache, vertigo, paresthesias, weakness ENDOCRINE: No: unexplained weight gain or loss HEMATOLOGIC/LYMPHATIC: No: anemia, easy bleeding, swelling nodes <Heike Bustos - Last Filed: 03/17/17 01:45> *Physical Exam - Vital Signs Last Vital Signs Temp Pulse Resp BP Pulse Ox 97.8 F 77 20 156/61 96 03/16/17 20:10 03/16/17 20:10 03/16/17 20:10 03/16/17 20:10 03/16/17 20:10 - Physical Exam Comments: 03/16/17 23:30 GENERAL: The patient is in no acute distress. HEAD:+Occipital hematoma EYES: PERRLA, EOMI, sclera anicteric, conjunctiva clear. ENT: Ears normal, nares patent, oropharynx clear without exudates. Moist mucous membranes. NECK: Normal range of motion, supple without lymphadenopathy, JVD, or masses. LUNGS: Breath sounds equal, clear to auscultation bilaterally. No wheezes, and no crackles. HEART:Regular rate and rhythm, normal S1 and S2 without murmur, rub or gallop. ABDOMEN: Soft, nontender, normoactive bowel sounds. No guarding, no rebound. EXTREMITIES: Normal range of motion, moving all extremities, no edema. No clubbing or cyanosis. No erythema, or tenderness. NEUROLOGICAL: Alert, responsive to questions. Sensation intact. Cranial nerves II through XII grossly intact. Normal speech. No focal neurological deficits. MUSCULOSKELETAL: Back nontender to palpation, no CVA tenderness SKIN: Warm, Dry, normal turgor, no rashes or lesions noted. <Heike Bustos - Last Filed: 03/17/17 01:45> - Vital Signs Last Vital Signs Temp Pulse Resp BP Pulse Ox 97.8 F 77 20 156/61 96 03/16/17 20:10 03/16/17 20:10 03/16/17 20:10 03/16/17 20:10 03/16/17 20:10 <Meri Albarran - Last Filed: 03/19/17 11:56> Heart Score/ECG Review #1 ECG reviewed & interpreted by me at: 00:47 03/17/17 00:47 Normal saline, rate of 64 bpm [place] normal intervals are normal: pr: 166ms, QRS: 88ms, QTc: no st elevations or depressions T waves mnl <Meri Albarran - Last Filed: 03/19/17 11:56> ED Treatment Course - LABORATORY CBC & Chemistry Diagram: 03/16/17 21:35 03/16/17 21:35 - RADIOLOGY Radiograph Interpretation: 03/16/17 23:20 EXAM: CT angiogram of the abdomen and pelvis with and without contrast IMAGES: [id number] INDICATION: GI bleed DATE OF SERVICE: 2017-01-26 21:37:45.0 COMPARISON: none FINDINGS: Lung bases are clear. The visualized cardiac chambers are normal size and configuration. Small hypodensity posterior aspect the right lobe representing cysts. Normal gallbladder, pancreas, spleen, adrenal glands and kidneys. The stomach and small bowel are normal. Extensive colonic diverticulosis is noted without diverticulitis. No evidence of acute GI bleeding. There is no aortic aneurysm. There is no significant retroperitoneal lymphadenopathy. The appendix is normal. The uterus and adnexal structures are normal. Urinary bladder is unremarkable. There is no pelvic free fluid. No discrete pelvic lymphadenopathy is identified. IMPRESSION: Diverticulosis without diverticulitis. No discrete evidence of GI bleeding. THIS DOCUMENT HAS BEEN ELECTRONICALLY SIGNED Kendell Lau MD 01/26/2017 23:13 EST EXAM: CT CERVICAL SPINE WITHOUT CONTRAST No acute fracture or malalignment cervical spine. Right occipital bone fracture as previously described. Multilevel spondylosis. THIS DOCUMENT HAS BEEN ELECTRONICALLY SIGNED Cesilia Cespedes M.D. 03/16/2017 23:03 EST EXAM: CT HEAD WITHOUT CONTRAST Acute minimally displaced fracture right occipital bone. Tiny acute subdural hematoma along right tentorium, 2 mm thick. No midline shift. No parenchymal hemorrhage, mass or acute territorial infarct. Age-related involutional changes and minimal chronic small vessel ischemic changes. Clear visualized paranasal sinuses. Visualized mastoid air cells clear. THIS DOCUMENT HAS BEEN ELECTRONICALLY SIGNED Cesilia Cespedes M.D. 03/16/2017 22:56 EST M.D. Please call Imaging Chart Picker [phone] ([phone]) with questions. 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 Tiny acute subdural hematoma along right tentorium, 2 mm thick. No midline shift. No parenchymal hemorrhage, mass or acute territorial infarct. Age-related involutional changes and minimal chronic small vessel ischemic changes. Clear visualized paranasal sinuses. Visualized mastoid air cells clear. THIS DOCUMENT HAS BEEN ELECTRONICALLY SIGNED Cesilia Cespedes M.D. 03/16/2017 22:56 EST <Heike Bustos - Last Filed: 03/17/17 01:45> - LABORATORY CBC & Chemistry Diagram: 03/17/17 06:30 03/17/17 06:30 <Meri Albarran - Last Filed: 03/19/17 11:56> Medical Decision Making - Critical Care Time Total Critical Care Time (minutes): 35 Critical Care Statement: The care of this patient involved high complexity decision making to prevent further life threatening deterioration of the patient 's condition and/or to evalute & treat vital organ system(s) failure or risk of failure. - Medical Decision Making I, Dr. Meri Albarran, attest that this document has been prepared under my direction and personally reviewed by me in its entirety. I further attest, that it accurately reflects all work, treatment, procedures and medical decision -making performed by me. This is an 86 yo F h/o DM, HTN presenting to the ER s/p fall with head trauma Pt was reportedly stepped up on something to try to clean she lost her balance and fell backwards, striking her head Pt unsure if she had preceding chest pain, shortness of breath, palpitations She remembers hitting the ground Pt denies LOC or amnesia Pt complains of occipital pain On examination Motor and sensation intact Pt speaking with clear sentences Answering questions at her baseline DD: head trauma, concussion, ICH Laboratory Tests 03/16/17 03/16/17 21:35 21:35 WBC 8.4 D Hgb 12.1 D Hct 36.0 D Plt Count 275 Neutrophils % 73.0 Lymphocytes % 15.1 D Sodium 140 Potassium 4.8 D Chloride 103 Carbon Dioxide 29 BUN 17 D Creatinine 0.6 Random Glucose 89 Creatine Kinase 78 Troponin I < 0.02 03/16/17 22:55 Called by imaging personal lines advisor re: this patient Small Right occipital fracture, small subdural hematoma (1-2mm) Call placed to Dr Goldberg Poor connection, unable to speak with him 03/17/17 00:34 03/17/17 00:38 Pt admitted to the hospitalist service Will contact Dr goldberg again 03/17/17 01:10 Dr goldberg has called the Er several times His connection is not good because [place] in an [place] will place this patient on observation will place on tele so that she can be closely monitored for any neurological changes will: place on observation NSGY consult Clinical impression: fall, head trauma, Subdural hematoma, occipital fracture <Meri Albarran - Last Filed: 03/19/17 11:56> *DC/Admit/Observation/Transfer - Attestations Scribe Attestion: 03/16/17 20:58 Documentation prepared by Heike Bustos, acting as medical editor for Meri Albarran MD/DO. <Heike Bustos - Last Filed: 03/17/17 01:45> - Discharge Dispostion Admit: Yes <Meri Albarran - Last Filed: 03/19/17 11:56> Diagnosis at time of Disposition: Subdural hematoma Occipital bone fracture Qualifiers: Encounter type: initial encounter Fracture type: closed Occipital fracture type : unspecified fracture of occiput Laterality: right Qualified Code(s): S02.119A - Unspecified fracture of occiput, initial encounter for closed fracture - Discharge Dispostion Disposition: HOME Condition at time of disposition: Improved
[2017-03-16 21:45] LABS: BASOPHIL 0.8 % (0-2.0); EOSINOPHIL 1.2 % (0-4.5); MCH 32.6 pg (25.7-33.7); MCHC 33.6 g/dl (32.0-36.0); MEAN CELL VOLUME 97.1 fl (80-96); MEAN PLT VOLUME 7.5 fl (7.5-11.1); PLATELET COUNT 275 K/MM3 (134-434); RDW 15.4 % (11.6-15.6); WHITE BLOOD COUNT 8.4 K/mm3 (4.0-10.0)
[2017-03-16 22:07] LABS: ANION GAP 8 (8-16); BILIRUBIN,TOTAL 0.2 mg/dL (0.2-1.0); CALCIUM 9.3 mg/dL (8.5-10.1); CO2 29 mmol/L (21-32); COCKROFT - GAULT 68.5865; CREATININE 0.6 mg/dL (0.55-1.02); GLUCOSE,RANDOM 89 mg/dL (74-106); SGPT/ALT 20 U/L (12-78); TOT PROT 7.5 g/dl (6.4-8.2)
[2017-03-16 22:09] LABS: ALK PHOS 70 U/L (45-117); TROPONIN I < 0.02 ng/ml (0.00-0.05)
[2017-03-16 22:10] LABS: SGOT/AST 20 U/L (15-37)
[2017-03-16] MEDS ORDERED: ACETAMINOPHEN 325 MG TABLET (FP) ONE (23:24)
[2017-03-16] MEDS ORDERED: ACETAMINOPHEN 325 MG TABLET (FP) PO ONE (23:58)
--- NOTE | 2017-03-17 00:37 | PN ---
<Tuan Mancera - Last Filed: 03/17/17 00:36> Teaching Attending Note Name of Resident: Carmelo Solorzano ATTENDING PHYSICIAN STATEMENT I saw and evaluated the patient. I reviewed the resident's note and discussed the case with the resident. I agree with the resident's findings and plan as documented. SUBJECTIVE: OBJECTIVE: ASSESSMENT AND PLAN: <DenisSarthak - Last Filed: 03/17/17 02:18> Teaching Attending Note ATTENDING PHYSICIAN STATEMENT I saw and evaluated the patient. I reviewed the resident's note and discussed the case with the resident. I agree with the resident's findings and plan as documented. Imaging data and chart reviewed. SUBJECTIVE: The patient is an 86 year old female with a past medical hx of asthma, hypertension, hyperlipidemia, diabetes, PUD on PPI, osteoarthritis and dementia who presented to the ED s/p unwitnessed fall at 7pm on 03/16/17 for evaluation of pain to the occipital region of her head. The patient's reported she was standing on a stool cleaning the house when she fell onto the floor. The patient was able to get herself up off of the floor. It is uncertain if the patient lost consciousness. She noted her head was bleeding. The patient is not on blood thinners or aspirin. As per family patient is at her baseline functional and mental status. OBJECTIVE: Vital Signs: Last Vital Signs Temp Pulse Resp BP Pulse Ox 97.8 F 77 20 156/61 96 03/16/17 20:10 03/16/17 20:10 03/16/17 20:10 03/16/17 20:10 03/16/17 20:10 GENERAL: (+) Awake, alert, and oriented to place, in no acute distress. HEENT: Moist mucosa. Normocephalic. No sinus tenderness. No LAD. No visible wounds on scalp. Scalp is nontender. NECK: No JVD. No thyroid masses. Supple. LUNGS: Clear to auscultation bilaterally. No wheezing, rhonchi or rales. HEART: Regular rate and rhythm, normal S1 and S2, no murmurs, rubs or gallops, peripheral pulses normal and equal bilaterally. ABDOMEN: Soft, nontender, normoactive bowel sounds. No guarding, no rebound. No Masses. MUSCULOSKELETAL: No joint tenderness or erythema. No muscle tenderness. Normal muscle bulk and tone. EXTREMITIES: Normal inspection, No edema. No clubbing or cyanosis. Moves all extremities. Labs: CBCD WBC 8.4 K/mm3 (4.0-10.0) D 03/16/17 21:35 RBC 3.70 M/mm3 (3.60-5.2) 03/16/17 21:35 Hgb 12.1 GM/dL (10.7-15.3) D 03/16/17 21:35 Hct 36.0 % (32.4-45.2) D 03/16/17 21:35 MCV 97.1 fl (80-96) H 03/16/17 21:35 MCHC 33.6 g/dl (32.0-36.0) 03/16/17 21:35 RDW 15.4 % (11.6-15.6) 03/16/17 21:35 Plt Count 275 K/MM3 (134-434) 03/16/17 21:35 MPV 7.5 fl (7.5-11.1) 03/16/17 21:35 CMP Sodium 140 mmol/L (136-145) 03/16/17 21:35 Potassium 4.8 mmol/L (3.5-5.1) D 03/16/17 21:35 Chloride 103 mmol/L (98-107) 03/16/17 21:35 Carbon Dioxide 29 mmol/L (21-32) 03/16/17 21:35 Anion Gap 8 (8-16) 03/16/17 21:35 BUN 17 mg/dL (7-18) D 03/16/17 21:35 Creatinine 0.6 mg/dL (0.55-1.02) 03/16/17 21:35 Creat Clearance w eGFR > 60 (>60) 03/16/17 21:35 Calcium 9.3 mg/dL (8.5-10.1) 03/16/17 21:35 Total Bilirubin 0.2 mg/dL (0.2-1.0) D 03/16/17 21:35 AST 20 U/L (15-37) D 03/16/17 21:35 ALT 20 U/L (12-78) D 03/16/17 21:35 Alkaline Phosphatase 70 U/L (45-117) 03/16/17 21:35 Total Protein 7.5 g/dl (6.4-8.2) 03/16/17 21:35 Albumin 4.0 g/dl (3.4-5.0) 03/16/17 21:35 Imaging: EXAM DATE AND TIME: 2017-03-16 22:28:51.0 EXAM: CT HEAD WITHOUT CONTRAST Acute minimally displaced fracture right occipital bone. Tiny acute subdural hematoma along right tentorium, 2 mm thick. No midline shift. No parenchymal hemorrhage, mass or acute territorial infarct. Age-related involutional changes and minimal chronic small vessel ischemic changes. Clear visualized paranasal sinuses. Visualized mastoid air cells clear. THIS DOCUMENT HAS BEEN ELECTRONICALLY SIGNED Cesilia Cespedes M.D. 03/16/2017 22:56 EST EXAM DATE AND TIME: 2017-03-16 22:26:15.0 EXAM: CT CERVICAL SPINE WITHOUT CONTRAST No acute fracture or malalignment cervical spine. Right occipital bone fracture as previously described. Multilevel spondylosis. THIS DOCUMENT HAS BEEN ELECTRONICALLY SIGNED Cesilia Cespedes M.D. 03/16/2017 23:03 EST DATE OF SERVICE: 2017-01-26 21:37:45.0 COMPARISON: none FINDINGS: Lung bases are clear. The visualized cardiac chambers are normal size and configuration. Small hypodensity posterior aspect the right lobe representing cysts. Normal gallbladder, pancreas, spleen, adrenal glands and kidneys. The stomach and small bowel are normal. Extensive colonic diverticulosis is noted without diverticulitis. No evidence of acute GI bleeding. There is no aortic aneurysm. There is no significant retroperitoneal lymphadenopathy. The appendix is normal. The uterus and adnexal structures are normal. Urinary bladder is unremarkable. There is no pelvic free fluid. No discrete pelvic lymphadenopathy is identified. IMPRESSION: Diverticulosis without diverticulitis. No discrete evidence of GI bleeding. THIS DOCUMENT HAS BEEN ELECTRONICALLY SIGNED Kendell Lau MD 01/26/2017 23:13 EST ASSESSMENT AND PLAN: 1. 86 year old female s/p fall with trauma to occipital region and 1-2 mm subdural occipital hematoma and acute minimally displaced fracture right occipital bone. Clinically stable with normal neuro exam. - Avoid heparin - Neuro checks Q4H - Fall precautions - Neurosurgery consult - Avoid aspirin or other anti quaaludes - NPO for now - Finger sticks - Sliding scale - Serial head CT 2. Chronic medical problems - pending home medication confirmation from family - Will restart home medications after they are confirmed 3. DVT PPX - low risk - SCDs Admit to observation Documentation prepared by Sarthak Barrios, acting as medical assembly for Dr. Tuan Mancera MD.
--- NOTE | 2017-03-17 00:42 | HP ---
CHIEF COMPLAINT: Mechanical Fall PCP: Dr. Alina Means HISTORY OF PRESENT ILLNESS: Patient is a 86 year old female with PMH of HTN, HLD, DM, Asthma, PUD on PPI, Diverticulosis, OA & Dementia who presented to ED s/p fall. As per patient, she was standing on a foot stool cleaning her kitchen cabinets when she slipped off the stool and fell to the ground. She denies any chest pain, SOB, headache, dizziness, palpitations or other symptoms prior to fall. She hit the back of her head on the floor, but did not lose consciousness. She had some minor bleeding from the site of impact. She has had a moderate headache since the fall but otherwise feels normal. Denies fever, chills, dysuria, diarrhea, constipation, CP, SOB. ER course was notable for: (1)CT HEAD WITHOUT CONTRAST Acute minimally displaced fracture right occipital bone. Tiny acute subdural hematoma along right tentorium, 2 mm thick. (2)EKG: NSR Troponin (-) x1 (3) Recent Travel: NONE REPORTED PAST MEDICAL HISTORY: ABOVE PAST SURGICAL HISTORY: Colonoscopy EGD Childbirth Social History: Smoking:FORMER ("LONG TIME AGO") Alcohol:NONE REPORTED Drugs:NONE REPORTED Family History: UNSURE Allergies Fish Containing Products Allergy (Unknown, Verified 03/16/17 20:10) Penicillins Allergy (Verified 03/16/17 20:10) Itching HOME MEDICATIONS: Home Medications Medication Instructions Recorded Acetaminophen [Tylenol Extra 500 mg PO QID PRN #0 05/24/15 Strength] Atorvastatin Ca [Lipitor] 40 mg PO HS #0 05/24/15 Memantine HCl [Namenda Xr] 7 mg PO DAILY #0 05/24/15 Olmesartan Medoxomil [Benicar -] 20 mg PO DAILY #0 05/24/15 Lipase/Protease/Amylase [Ingrid العلي 1 each PO BID 10/16/15 24,000 Units Capsule] Meclizine HCl [Antivert -] 25 mg PO QID PRN #28 tablet 10/16/15 Metoprolol Succinate [Toprol Xl] 25 mg PO DAILY 10/16/15 Pantoprazole Sodium [Protonix] 40 mg PO DAILY #30 tablet. 01/29/17 Amlodipine Besylate [Norvasc -] 5 mg PO DAILY 02/26/17 Ranolazine [Ranexa] 1,000 mg PO UTDICT 02/26/17 Salmeterol/Fluticasone [Advair 1 inh PO BID PRN 02/26/17 250Mcg/50Mcg -] Sitagliptin Phosphate [Januvia] 100 mg PO DAILY 02/26/17 Unobtainable 03/17/17 REVIEW OF SYSTEMS CONSTITUTIONAL: Absent: fever, chills, diaphoresis, generalized weakness, malaise, loss of appetite, weight change HEENT: Absent: rhinorrhea, nasal congestion, throat pain, throat swelling, difficulty swallowing, mouth swelling, ear pain, eye pain, visual changes CARDIOVASCULAR: Absent: chest pain, syncope, palpitations, irregular heart rate, lightheadedness , peripheral edema RESPIRATORY: Absent: cough, shortness of breath, dyspnea with exertion, orthopnea, wheezing, stridor, hemoptysis GASTROINTESTINAL: Absent: abdominal pain, abdominal distension, nausea, vomiting, diarrhea, constipation, melena, hematochezia GENITOURINARY: Absent: dysuria, frequency, urgency, hesitancy, hematuria, flank pain, genital pain MUSCULOSKELETAL: Absent: myalgia, arthralgia, joint swelling, back pain, neck pain SKIN: Absent: rash, itching, pallor HEMATOLOGIC/IMMUNOLOGIC: Absent: easy bleeding, easy bruising, lymphadenopathy, frequent infections ENDOCRINE: Absent: unexplained weight gain, unexplained weight loss, heat intolerance, cold intolerance NEUROLOGIC: (+)headache, Absent: focal weakness or paresthesias, dizziness, unsteady gait, seizure, mental status changes, bladder or bowel incontinence PSYCHIATRIC: Absent: anxiety, depression, suicidal or homicidal ideation, hallucinations. PHYSICAL EXAMINATION Vital Signs - 24 hr 03/16/17 20:10 Temperature 97.8 F Pulse Rate 77 Respiratory 20 Rate Blood Pressure 156/61 O2 Sat by Pulse 96 Oximetry (%) GENERAL: Awake, alert, and fully oriented, in no acute distress. HEENT: Small abrasion at right occipital skull base, no active bleeding. EOMI, PERRLA. Moist membranes LUNGS: Breath sounds equal, clear to auscultation bilaterally. No wheezes, and no crackles. No accessory muscle use. HEART: Regular rate and rhythm, normal S1 and S2 without murmur, rub or gallop. ABDOMEN: Soft, nontender, not distended, normoactive bowel sounds, no guarding, no rebound, no masses. No hepatomegaly or splenomegaly. MUSCULOSKELETAL: Normal range of motion at all joints. No bony deformities or tenderness. No CVA tenderness. UPPER EXTREMITIES: 2+ pulses, warm, well-perfused. No cyanosis. No clubbing. No peripheral edema. LOWER EXTREMITIES: 2+ pulses, warm, well-perfused. No calf tenderness. No peripheral edema. NEUROLOGICAL: Cranial nerves II-XII intact. Normal speech. Normal gait. PSYCHIATRIC: Cooperative. Good eye contact. Appropriate mood and affect. SKIN: Warm, dry, normal turgor, no rashes or lesions noted, normal capillary refill. Laboratory Results - last 24 hr 03/16/17 03/16/17 21:35 21:35 WBC 8.4 D RBC 3.70 Hgb 12.1 D Hct 36.0 D MCV 97.1 H MCHC 33.6 RDW 15.4 Plt Count 275 MPV 7.5 Neutrophils % 73.0 Lymphocytes % 15.1 D Monocytes % 9.9 Eosinophils % 1.2 Basophils % 0.8 Sodium 140 Potassium 4.8 D Chloride 103 Carbon Dioxide 29 Anion Gap 8 BUN 17 D Creatinine 0.6 Creat Clearance w eGFR > 60 Random Glucose 89 Calcium 9.3 Total Bilirubin 0.2 D AST 20 D ALT 20 D Alkaline Phosphatase 70 Creatine Kinase 78 Troponin I < 0.02 Total Protein 7.[address] CERVICAL SPINE WITHOUT CONTRAST No acute fracture or malalignment cervical spine. Right occipital bone fracture as previously described. Multilevel spondylosis. THIS DOCUMENT HAS BEEN ELECTRONICALLY SIGNED Cesilia Cespedes M.D. 03/16/2017 23: [address] HEAD WITHOUT CONTRAST Acute minimally displaced fracture right occipital bone. Tiny acute subdural hematoma along right tentorium, 2 mm thick. No midline shift. No parenchymal hemorrhage, mass or acute territorial infarct. Age-related involutional changes and minimal chronic small vessel ischemic changes. Clear visualized paranasal sinuses. Visualized mastoid air cells clear. THIS DOCUMENT HAS BEEN ELECTRONICALLY SIGNED Cesilia Cespedes M.D. 03/16/2017 22: 56 EST Jose. Please call Imaging Files Supervisor [phone] ([phone]) with questions. End of Report Content = ASSESSMENT/PLAN: 86 year old female with PMH of HTN, HLD, DM, Asthma, PUD on PPI, Diverticulosis , OA & Dementia who presented to ED s/p fall. CT imaging showed Right occipital bone fracture & small subdural hematoma along right tentorium (2mm). 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 & subdural hematoma -no active signs of bleeding, increased ICP or evolution in severity or location of headache -placed in observation -Neurosurgery consulted -will likely need serial Head CT starting in AM -Neuro checks q4h -NPO until assessed by neurosurgery -Tylenol pain management for headache -AVOID ANTICOAGULATION UNTIL SEEN BY NEUROSURGERY #HTN/HLD -need to reconcile medications -vitals q4h to monitor for now -EKG reviewed, trponin (-) x1 -will repeat troponin in AM given cardiac history #Asthma -albuterol PRN #Dementia -need to reconcile medications #DM -ISS -BGM Prophylaxis -SCD's -PPI -NPO for now Unable to reconcile medications as patient is a poor historian and family is not sure. Granddaughter to bring in medications tomorrow AM. Visit type - Emergency Visit Emergency Visit: Yes ED Registration Date: 03/17/17 Care time: The patient presented to the Emergency Department on the above date and was hospitalized for further evaluation of their emergent condition. - New Patient This patient is new to me today: Yes Date on this admission: 03/17/17 - Critical Care Critical Care patient: No
[2017-03-17] MEDS ORDERED: ACETAMINOPHEN 325 MG TABLET (FP) PO PRN (01:36)
[2017-03-17] MEDS ORDERED: ACETAMINOPHEN 325 MG TABLET (FP) ONE (03:39)
[2017-03-17 03:54] LABS: INR 1.03 (0.82-1.09); PROTHROMBIN TIME (PATIENT) 11.3 SEC (9.98-11.88)
[2017-03-17 03:56] LABS: ACTIVATED PTT 35.9 SECONDS (26.9-34.4)
[2017-03-17 06:44] LABS: MCH 32.8 pg (25.7-33.7); MEAN CELL VOLUME 96.5 fl (80-96); MEAN PLT VOLUME 7.4 fl (7.5-11.1); PLATELET COUNT 292 K/MM3 (134-434); RDW 14.8 % (11.6-15.6); WHITE BLOOD COUNT 6.6 K/mm3 (4.0-10.0)
[2017-03-17 07:09] LABS: ANION GAP 10 (8-16); CALCIUM 9.6 mg/dL (8.5-10.1); CO2 29 mmol/L (21-32); COCKROFT - GAULT 68.5865; CREATININE 0.6 mg/dL (0.55-1.02); GLUCOSE,RANDOM 101 mg/dL (74-106)
[2017-03-17 07:11] LABS: TROPONIN I < 0.02 ng/ml (0.00-0.05)
[2017-03-17] MEDS: INSULIN SLIDING SCALE (NOVOLOG) 1 VIAL SQ SCH ×3 (07:16→17:17)
--- NOTE | 2017-03-17 09:48 | PN ---
Physical Exam: SUBJECTIVE: Patient seen and examined in the ER. She is currently awaiting bed placement. She states she has headaches "on and off" Denies any visual defect, denies dizziness. OBJECTIVE: Awaiting neurosurgery consult Neuro consult ordered patient has a history of dementia, family not present patient is able to answer some questions appropriately Tylenol 650mg scheduled for headaches Spoke to daughter Klaudia [phone] @11:15 a.m. - daughter to bring home med list Daughter states her mom has home attendants that stay with her and her family lives next door but patient lives alone Vital Signs Period Temp Pulse Resp BP Sys/Nixon Pulse Ox Last 24 Hr 98.0 F-98.4 F 61-66 14-20 143-161/72-82 96-96 GENERAL: The patient is awake, alert, has history of dementia HEAD: No obvious signs of trauma. CT scan shows occipital bone fracture, and subdural hematoma - has facial symmetry, equal smile EYES: Pupils are equal and reactive ENT: Ears normal, nares patent, oropharynx clear without exudates, moist mucous membranes. NECK: Trachea midline, full range of motion, supple. LUNGS: Breath sounds equal, clear to auscultation bilaterally HEART: Regular rate and rhythm ABDOMEN: Soft, nontender, nondistended, normoactive bowel sounds EXTREMITIES: no edema. NEUROLOGICAL: Normal speech, gait not observed. PSYCH: Normal mood, normal affect. SKIN: Warm, dry, normal turgor, no rashes or lesions noted - no facial trauma Laboratory Results - last 24 hr 03/17/17 03/17/17 03/17/17 03:30 06:30 06:30 WBC 6.6 RBC 3.80 Hgb 12.4 Hct 36.6 MCV 96.5 H MCHC 34.0 RDW 14.8 Plt Count 292 MPV 7.4 L INR 1.03 PTT (Actin FS) 35.9 H D Sodium 141 Potassium 4.1 Chloride 102 Carbon Dioxide 29 Anion Gap 10 BUN 13 D Creatinine 0.6 Random Glucose 101 Calcium 9.6 Troponin I < 0.02 Active Medications Generic Name Dose Route Start Last Admin Trade Name Freq PRN Reason Stop Dose Admin Acetaminophen 650 mg 03/17/17 01:36 03/17/17 03:45 Tylenol - PO 650 mg Q4H PRN Administration FEVER OR PAIN Insulin Aspart 1 vial 03/17/17 07:00 03/17/17 07:16 Novolog Vial Sliding Scale - SQ Not Given TIDAC [facility] Protocol Pantoprazole Sodium 40 mg 03/17/17 10:00 Protonix - PO DAILY [facility] ASSESSMENT/PLAN: Patient is a 86 year old female with a significant past medical history of Asthma, hypertension, HLD, diabetes, dementia. Herpes Zoster (left flank) and lower GI bleed on 01/26/2017. She presented to the ER on 03/17/2017 s/p fall @ home. As per ER notes, pt was standing on a foot stool cleaning her kitchen cabinets when she slipped off the stool and fell to the ground. Prior to the fall pt denies chest pain, headache, dizziness or palpitations. When she fell, she hit the back of her head but did not lose consciousness. She reports headache since the fall but otherwise feels well. Imaging: Head CT 03/16/2017 - acute minimally displaced fracture right occipital bone. Tiny acute subdural hematoma along right tentorium, [address] 03/17/2017 - No evidence or changes since prior study, trace acute subdural hematoma along the right tentorial leaf Neurology: Subdural hematoma with occipital bone fracture s/p mechanical fall @home - acute Assessment/Plan: No active signs of bleeding or worsening headache, pupils reactive to light- equal Neurologist and Neurosurgery consulted Serial CT scans for tonight and in the a.m. Neurochecks q4 NPO for now until cleared by neuro Tylenol scheduled for headache pain Anticoagulation contraindicated secondary to recent GI bleed UA and urine culture to rule out infection, however she is afebrile and no white count, monitor Not hypoglycemic on admission Mechanical fall on elderly female - acute Assessment/Plan: Cause of fall? mechanical fall vs. infection vs. hypoglycemia vs. cardiac component Mechanical fall - PT ordered, pt lives alone, needs social work input Infectious cause rule out -UA and urine culture ordered. She is afebrile, no WBC ; monitor Monitor BGMs q6 Troponins x negative x 2, awaiting 3rd, EKG with no changes compared to last admission Cardiology: Hypertension Assessment/Plan: Monitor BP Will reconcile mediations with patient's daughter Klaudia whom I spoke with this morning Troponins negative x 2, awaiting 3rd trop EKG 03/16: SR with left vent. hyperthrophy, no significant changes when compared to ekg on 01/26/17 orthostatic vitals q4 GI: Lower GI Bleed/Abdominal pain on admission of 01/26/2017 Assessment/Plan: No AC secondary to recent hx of GI bleed Endocrine: Diabetes Mellitus Assessment/Plan: Novolog sliding scale, monitor BGMs F.E.N. Fluids: D5/NS @100cc/hr Electrolyetes: BMP within normal limits Nutrition: NPO until seen by neuro Prophylaxis DVT: SCDs GI: Protonix PT consult s/p fall Disposition: Requires inpatient observation. Full Code Visit type - Emergency Visit Emergency Visit: Yes ED Registration Date: 03/17/17 Care time: The patient presented to the Emergency Department on the above date and was hospitalized for further evaluation of their emergent condition. - New Patient This patient is new to me today: Yes Date on this admission: 03/17/17 - Critical Care Critical Care patient: No - Discharge Referral Referred to [facility] Med P.C.: No
[2017-03-17] MEDS: ACETAMINOPHEN 325 MG TABLET (FP) PO SCH ×3 (09:51→22:39)
[2017-03-17] MEDS ORDERED: PANTOPRAZOLE 40 MG TABLET (FP) ONE (09:59)
[2017-03-17] MEDS ORDERED: DEXTROSE 5%-NORMAL SALINE 1,000 ML IV SCH (10:00)
[2017-03-17] MEDS: PANTOPRAZOLE 40 MG TABLET (FP) PO SCH (10:00)
--- NOTE | 2017-03-17 12:26 | EKG ---
Test Reason : Blood Pressure : / mmHG Vent. Rate : 064 BPM Atrial Rate : 064 BPM P-R Int : 166 ms QRS Dur : 088 ms QT Int : 418 ms P-R-T Axes : 058 -06 036 degrees QTc Int : 431 ms NORMAL SINUS RHYTHM VOLTAGE CRITERIA FOR LEFT VENTRICULAR HYPERTROPHY ABNORMAL ECG WHEN COMPARED WITH ECG OF 26-JAN-2017 18:55, NO SIGNIFICANT CHANGE WAS FOUND Confirmed by CARLOS WADDELL MD ([id number]) on 03/17/2017 12:25:57 PM Referred By: Confirmed By:CARLOS WADDELL MD
[2017-03-17 16:02] LABS: URINE APPEARANCE CLEAR; URINE BILIRUBIN NEGATIVE (NEGATIVE); URINE BLOOD NEGATIVE (NEGATIVE); URINE COLOR LTYELLOW; URINE GLUCOSE (UA) NEGATIVE (NEGATIVE); URINE KETONE NEGATIVE (NEGATIVE); URINE LEUK ESTERASE NEGATIVE (NEGATIVE); URINE NITRITE NEGATIVE (NEGATIVE); URINE PROTEIN NEGATIVE (NEGATIVE); URINE UROBILINOGEN NEGATIVE E.U./dl (0.2-1.0)
--- NOTE | 2017-03-17 18:16 | CON.NEURO ---
Consult Consult Specialty:: neurology - History of Present Illness History of Present Illness: 86 year old female with a past medical hx of asthma, hypertension, hyperlipidemia, diabetes, PUD on PPI, osteoarthritis and dementia who presented to the ED s/p unwitnessed fall at 7pm on 03/16/17 The patient's reported she was standing on a stool -cleaning the house when she fell onto the floor. ?LOC though noted to head bleeding. no HX of blood thinners or aspirin. As per family patient is at her baseline functional and mental status. sitting by bed eating now, with no c/o; smiling. CT head showed very subtle subdural R tentorial leaf ; CT HD repeat today -no change . - History Source History Provided By: Medical Record - Past Medical History [employer]: Yes: Dementia Cardio/Vascular: Yes: HTN Gastrointestinal: Yes: Constipation Infectious Disease: Yes: Herpes Zoster (Left lower flank are with erythema based papules) Endocrine: Yes: Diabetes Mellitus - Past Surgical History Past Surgical History: Yes: None - Alcohol/Substance Use Hx Alcohol Use: No History of Substance Use: reports: None - Smoking History Smoking history: Never smoked Have you smoked in the past 12 months: No Aproximately how many cigarettes per day: 0 If you are a former smoker, when did you quit?: 1969 - Social History History of Recent Travel: No Home Medications - Allergies Allergies/Adverse Reactions: Allergies Allergy/AdvReac Type Severity Reaction Status Date / Time Fish Containing Products Allergy Unknown Verified 03/16/17 20:10 Penicillins Allergy Itching Verified 03/16/17 20:10 - Home Medications Home Medications: Ambulatory Orders Acetaminophen [Mapap] 500 mg PO DAILY PRN 03/17/17 Memantine HCl [Namenda -] 10 mg PO DAILY 03/17/17 Metoprolol Tartrate 25 mg PO DAILY 03/17/17 Olmesartan Medoxomil [Benicar (Nf)] 20 mg PO DAILY 03/17/17 Olmesartan/Hydrochlorothiazide [Benicar Hct 40-25 mg Tablet] 1 each PO DAILY Family Disease History - Family Disease History Family Disease History: Other: Father (), Mother () Physical Exam-Neuro Vital Signs: Vital Signs Temperature 98 F 03/17/17 18:00 Pulse Rate 64 03/17/17 18:00 Respiratory Rate 18 03/17/17 18:00 Blood Pressure 132/70 03/17/17 18:00 O2 Sat by Pulse Oximetry (%) 98 03/17/17 18:00 Labs: CBC, BMP 03/17/17 06:30 03/17/17 06:30 INR, PTT INR 1.03 (0.82-1.09) 03/17/17 03:30 NIH Stroke Scale - Total Score NIH Stroke Scale Score: 0 Imaging - Results Cat Scan: Report Reviewed Problem List - Problems (1) Subdural hematoma Assessment/Plan: S/p mechanical fall with very subtle subdural R tentorium; no change within 12 hours. non-focal exam and appears at baseline. hold ASA x one month. if no new sx by AM, can likely be DC back home. Dr Dotson [phone] Code(s): I62.00 - NONTRAUMATIC SUBDURAL HEMORRHAGE, UNSPECIFIED (2) Fall (on) (from) other stairs and steps, initial encounter Code(s): W10.8XXA - FALL (ON) (FROM) OTHER STAIRS AND STEPS, INITIAL ENCOUNTER
[2017-03-17] MEDS ORDERED: PT OWN MED DRAWER 7, Y5N ONE (21:51)
[2017-03-17] MEDS ORDERED: ONDANSETRON 4 MG/2 ML VIAL IVPUSH ONE (22:01)
[2017-03-18] MEDS: ACETAMINOPHEN 325 MG TABLET (FP) PO SCH ×2 (06:08→09:40)
[2017-03-18] MEDS: INSULIN SLIDING SCALE (NOVOLOG) 1 VIAL SQ SCH ×2 (06:08→12:00)
--- NOTE | 2017-03-18 08:47 | PN ---
Progress Note, Physician Chief Complaint: Mechanical fall with subdural hematoma on CT scan History of Present Illness: Patient had unwitnessed mechanical fall at home and was admitted for observation after finding of subdural hematoma on head CT - Current Medication List Current Medications: Active Medications Acetaminophen (Tylenol -) 650 mg PO Q6H [facility] Last Admin: 03/18/17 06:08 Dose: Not Given Hydrochlorothiazide (Hctz -) 25 mg PO DAILY [facility] Dextrose/Sodium Chloride (D5-Ns -) 1,000 mls @ 75 mls/hr IV ASDIR [facility] Last Admin: 03/17/17 10:00 Dose: 75 mls/hr Insulin Aspart (Novolog Vial Sliding Scale -) 1 vial SQ TIDAC [facility] PRN Reason: Protocol Last Admin: 03/18/17 06:08 Dose: Not Given Memantine (Namenda -) 10 mg PO DAILY [facility] Metoprolol Tartrate (Lopressor -) 25 mg PO DAILY [facility] Pantoprazole Sodium (Protonix -) 40 mg PO DAILY [facility] Last Admin: 03/17/17 10:00 Dose: 40 mg Valsartan (Diovan -) 320 mg PO DAILY [facility] - Objective Vital Signs: Vital Signs Temperature 98.3 F 03/18/17 02:00 Pulse Rate 61 03/18/17 06:26 Respiratory Rate 20 03/18/17 06:26 Blood Pressure 129/67 03/18/17 06:26 O2 Sat by Pulse Oximetry (%) 98 03/17/17 18:00 Additional Findings/Remarks: Gait is steady Labs: CBC, BMP 03/17/17 06:30 03/17/17 06:30 INR, PTT INR 1.03 (0.82-1.09) 03/17/17 03:30 - ....Imaging Cat Scan: Image Reviewed (Report is still pending from this morning's scan but to my eyes, the imaging is stable if not improved.) Problem List - Problems (1) Subdural hematoma caused by concussion Assessment/Plan: Patient is currently stable, at baseline neurologic function, and if radiologic findings concur that the imagining is no worse, than she can be discharged from a neurologic perspective. Please have her follow up with us in about 2 weeks as an outpatient. Her family should be alerted to the possibility of delayed acumulation of subdural collection which can sometimes occur in the elderly, so if she has a change in gait or mental status that occurs, they should contact us or bring patient back to ER for repeat imaging. Thank you very much!! Please call if there are further questions. Code(s): S06.5X9A - TRAUM SUBDR HEM W LOC OF UNSP DURATION, INIT
[2017-03-18] MEDS: PANTOPRAZOLE 40 MG TABLET (FP) PO SCH (09:41)
[2017-03-18] MEDS ORDERED: METOPROLOL TARTRATE 25 MG TABLET (FP) PO SCH (10:00)
[2017-03-18] MEDS ORDERED: MEMANTINE HCL 10 MG TABLET (FP) PO SCH (10:00)
[2017-03-18] MEDS ORDERED: HYDROCHLOROTHIAZIDE 25 MG TABLET (FP) PO SCH (10:00)
[2017-03-18] MEDS ORDERED: VALSARTAN 160 MG TABLET (UD) PO SCH (10:00)
[2017-03-18] MEDS ORDERED: PATIENT'S OWN MEDICATION (NON-FORMULARY) (Olmesartan Medoxomil 20 MG) PO SCH (10:00)
[2017-03-18 14:10] VITALS: BP 129/58; PULSE 55; TEMP 98.4
--- NOTE | 2017-03-18 15:38 | DS ---
Physical Exam: SUBJECTIVE: Patient seen and examined OBJECTIVE: Vital Signs Period Temp Pulse Resp BP Sys/Nixon Pulse Ox Last 24 Hr 97.4 F-98.4 F 55-79 16-20 126-158/52-79 96-98 PHYSICAL EXAM GENERAL: The patient is awake, alert, and fully oriented, in no acute distress. HEAD: Normal with no signs of trauma. EYES: PERRL, extraocular movements intact, sclera anicteric, conjunctiva clear. ENT: Ears normal, nares patent, oropharynx clear without exudates, moist mucous membranes. NECK: Trachea midline, full range of motion, supple. LUNGS: Breath sounds equal, clear to auscultation bilaterally, no wheezes, no crackles, no accessory muscle use. HEART: Regular rate and rhythm, S1, S2 without murmur, rub or gallop. ABDOMEN: Soft, nontender, nondistended, normoactive bowel sounds, no guarding, no rebound, no hepatosplenomegaly, no masses. EXTREMITIES: 2+ pulses, warm, well-perfused, no edema. NEUROLOGICAL: Cranial nerves II through XII grossly intact. Normal speech, gait not observed. PSYCH: Normal mood, normal affect. SKIN: Warm, dry, normal turgor, no rashes or lesions noted. LABS Laboratory Results - last 24 hr 03/17/17 03/17/17 03/17/17 15:20 15:53 17:15 POC Glucometer 253 Troponin I < 0.02 Urine Color Ltyellow Urine Appearance Clear Urine pH 7.0 Ur Specific [place] 1.011 Urine Protein Negative Urine Glucose (UA) Negative Urine Ketones Negative Urine Blood Negative Urine Nitrite Negative Urine Bilirubin Negative Urine Urobilinogen Negative Ur Leukocyte Esterase Negative 03/18/17 03/18/17 05:55 11:45 POC Glucometer 85 87 Troponin I Urine Color Urine Appearance Urine pH Ur Specific [place] Urine Protein Urine Glucose (UA) Urine Ketones Urine Blood Urine Nitrite Urine Bilirubin Urine Urobilinogen Ur Leukocyte Esterase HOSPITAL COURSE: Date of Admission:03/17/17 Date of Discharge: 03/18/17 Patient is a 86 year old female with a significant past medical history of Asthma, hypertension, HLD, diabetes, dementia. Herpes Zoster (left flank) and lower GI bleed on 01/26/2017. She presented to the ER on 03/17/2017 s/p fall @ home. As per ER notes, pt was standing on a foot stool cleaning her kitchen cabinets when she slipped off the stool and fell to the ground. Prior to the fall pt denies chest pain, headache, dizziness or palpitations. When she fell, she hit the back of her head but did not lose consciousness. She reports headache since the fall but otherwise feels well. Imaging: Head CT 03/16/2017 - acute minimally displaced fracture right occipital bone. Tiny acute subdural hematoma along right tentorium, [address] 03/17/2017 - No evidence or changes since prior study, trace acute subdural hematoma along the right tentorial leaf Head CT 03/18/2017 - Less dense right tentorium cerebelli compared to 03/16; no CT evidence of acute territorial infarction Neurology: S/p mechanical fall with very subtle subdural R tentorium non-focal exam and appeared at baseline Serial CT scans showed no progression hold ASA x one month. Cardiology: Hypertension BP well-controlled on home meds ACS ruled out Troponins negative x 3 Endocrine: Diabetes Mellitus Assessment/Plan: Novolog sliding scale, monitor BGMs Minutes to complete discharge: 35 Discharge Summary Reason For Visit: OCCIPITAL BONE FRACTURE, SUBDURAL HEMATOM Current Active Problems Fall (on) (from) other stairs and steps, initial encounter (Acute) Occipital bone fracture (Acute) Subdural hematoma (Acute) Subdural hematoma caused by concussion (Acute) Condition: Improved - Instructions Diet, Activity, Other Instructions: It is very important that you follow up with Dr. Dotson, the neurologist who saw you in the hospital. His contact information is enclosed. Call his office and make an appointment to see him in 10-14 days. Return to the emergency department for any new or worsening symptoms. Referrals: Byron Dotson DO [Staff Physician] - 2 Weeks Disposition: HOME - Home Medications Comprehensive Discharge Medication List: Ambulatory Orders Acetaminophen [Mapap] 500 mg PO DAILY PRN 03/17/17 Memantine HCl [Namenda -] 10 mg PO DAILY 03/17/17 Metoprolol Tartrate 25 mg PO DAILY 03/17/17 Olmesartan Medoxomil [Benicar (Nf)] 20 mg PO DAILY 03/17/17 Olmesartan/Hydrochlorothiazide [Benicar Hct 40-25 mg Tablet] 1 each PO DAILY This patient is new to me today: Yes Date on this admission: 03/21/17 Emergency Visit: Yes ED Registration Date: 03/17/17 Care time: The patient presented to the Emergency Department on the above date and was hospitalized for further evaluation of their emergent condition. Critical Care patient: No - Discharge Referral Referred to [facility] Med P.C.: No
== END 2017-03-18 16:50 | disposition home or self-care (01) ==
LOC: JER 19:55 → JERBED 03-17 01:13 → J4W 03-17 17:48
PROVIDERS: ADMIT Internal Medicine; ATTEND Nurse Practitioner Acute Care
PROC: 3E033GC Introduction of Other Therapeutic Substance into Peripheral Vein, Percutaneous Approach (ICD-10-PCS; principal; 2017-03-17)
PROC: 3E0337Z Introduction of Electrolytic and Water Balance Substance into Peripheral Vein, Percutaneous Approach (ICD-10-PCS; 2017-03-17)
DX: S06.5X0A Traumatic subdural hemorrhage without loss of consciousness, initial encounter (principal); S02.119A Unspecified fracture of occiput, initial encounter for closed fracture; W10.8XXA Fall (on) (from) other stairs and steps, initial encounter; Y93.E9 Activity, other interior property and clothing maintenance; Y92.009 Unspecified place in unspecified non-institutional (private) residence as the place of occurrence of the external cause; I10 Essential (primary) hypertension; E78.5 Hyperlipidemia, unspecified; E11.9 Type 2 diabetes mellitus without complications; J45.909 Unspecified asthma, uncomplicated; K27.9 Peptic ulcer, site unspecified, unspecified as acute or chronic, without hemorrhage or perforation; M19.90 Unspecified osteoarthritis, unspecified site; G30.9 Alzheimer's disease, unspecified; F02.80 Dementia in other diseases classified elsewhere, unspecified severity, without behavioral disturbance, psychotic disturbance, mood disturbance, and anxiety; D64.9 Anemia, unspecified
CPT/HCPCS: 36415; 70450-TC; 72125-TC; 80048; 80053; 81003; 82550; 84484; 85025; 85027; 85610; 85730; 87086; 93005; 93010; 97116-GP; 97161-GP; 99285-25; G0378

== ENCOUNTER 2017-04-02 16:25 | Emergency (ER) | payer OTHER ==
[2017-04-02 16:57] VITALS: TEMP 97.6; BMI 25.0
[2017-04-02] MEDS ORDERED: ASPIRIN 81 MG CHEWABLE TABLETS PO ONE (17:01)
--- NOTE | 2017-04-02 18:35 | PDOC ---
History of Present Illness - General History Source: Patient, Family Exam Limitations: No Limitations <Arnaldo Mchugh - Last Filed: 04/02/17 18:42> - General History Source: Patient Exam Limitations: No Limitations <Meri Albarran - Last Filed: 04/03/17 09:10> - General Chief Complaint: Chest Pain Stated Complaint: CHEST PAIN Time Seen by Provider: 04/02/17 17:00 - History of Present Illness Initial Comments: 04/02/17 18:42 The patient is a 86 year old female presenting with her family, with a significant past medical history of asthma, hypertension, hyperlipidemia, diabetes, PUD on PPI, osteoarthritis and dementia, who presents to the emergency department with chest pain 3.5 hours prior to presentation. The family states that the patient has had complaints of chest pain in the past and was recently worked up by a macerator operator 2 months ago. A workup that included a stress test, which was negative as per family. The family notes that the patient attempted to take a tablet for pain and instead took a sleeping pill, which made her drowzy. When her son arrived to the home and saw his mother was drowzy, he decided to call EMS and bring the patient to the ED for evaluation. The patient denies shortness of breath, headache and dizziness. Denies fever, chills, nausea, vomiting, diarrhea and constipation. Denies dysuria, frequency, urgency and hematuria. 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 (Arnaldo Mchugh) Past History <Arnaldo Mchugh - Last Filed: 04/02/17 18:42> - Past Medical History Anemia: Yes Asthma: Yes Cancer: No Cardiac Disorders: No CVA: No COPD: No CHF: No Dementia: Yes (Alzheimer's) Diabetes: Yes (TYPE II) GI Disorders: Yes (DIVERTICULOSIS) Disorders: No HTN: Yes Hypercholesterolemia: Yes Liver Disease: No Seizures: No Thyroid Disease: No - Surgical History Abdominal Surgery: No Appendectomy: No Cardiac Surgery: No Cholecystectomy: No Lung Surgery: No Neurologic Surgery: No Orthopedic Surgery: No - Immunization History Immunization Up to Date: Yes - Psycho/Social/Smoking Cessation Hx Anxiety: No Suicidal Ideation: No Smoking Status: No Smoking History: Former smoker Have you smoked in the past 12 months: No Number of Cigarettes Smoked Daily: 0 If you are a former smoker, when did you quit?: 1970 Information on smoking cessation initiated: No Hx Alcohol Use: No Drug/Substance Use Hx: No Substance Use Type: None Hx Substance Use Treatment: No <Meri Albarran - Last Filed: 04/03/17 09:10> - Past Medical History Allergies/Adverse Reactions: Allergies Allergy/AdvReac Type Severity Reaction Status Date / Time Fish Containing Products Allergy Unknown Verified 03/16/17 20:10 Penicillins Allergy Itching Verified 03/16/17 20:10 Home Medications: Ambulatory Orders Memantine HCl [Namenda -] 10 mg PO DAILY 03/17/17 Metoprolol Tartrate 25 mg PO DAILY 03/17/17 Olmesartan/Hydrochlorothiazide [Benicar Hct 40-25 mg Tablet] 1 each PO DAILY Cardiac Specific PMH - Complaint Specific PMHX Pacemaker: No <Meri Albarran - Last Filed: 04/03/17 09:10> Review of Systems - Review of Systems Able to Perform ROS?: Yes <Arnaldo Mchugh - Last Filed: 04/02/17 18:42> <Meri Albarran - Last Filed: 04/03/17 09:10> - Review of Systems Comments:: 04/02/17 18:43 GENERAL/CONSTITUTIONAL: (+) Drowziness. No: fever, chills, weakness, loss of appetite. HEAD, EYES, EARS, NOSE AND THROAT: No: change in vision, ear pain, discharge, sore throat, throat swelling. CARDIOVASCULAR: (+) Chest pain. No: lightheadedness, palpitations, syncope RESPIRATORY: No: cough, shortness of breath, wheezing, hemoptysis, stridor. GASTROINTESTINAL: No: nausea, vomiting, abdominal cramping, diarrhea, rectal bleeding, constipation. GENITOURINARY: No: dysuria, hematuria, frequency, urgency, flank pain. MUSCULOSKELET AL: No: back pain, neck pain, joint pain, muscle swelling or pain SKIN AND BREASTS: No: lesions, pallor, rash or easy bruising. NEUROLOGIC: No: headache, vertigo, paresthesias, weakness ENDOCRINE: No: unexplained weight gain or loss HEMATOLOGIC/LYMPHATIC: No: anemia, easy bleeding, swelling nodes (Arnaldo Mchugh) *Physical Exam <Arnaldo Mchugh - Last Filed: 04/02/17 18:42> <Meri Albarran - Last Filed: 04/03/17 09:10> - Vital Signs Last Vital Signs Temp Pulse Resp BP Pulse Ox 97.6 F 59 L 16 165/66 99 04/02/17 16:25 04/02/17 21:08 04/02/17 21:08 04/02/17 21:08 04/02/17 21:08 - Physical Exam Comments: 04/02/17 18:43 GENERAL: The patient is in no acute distress. HEAD: Normal with no signs of trauma. EYES: PERRLA, EOMI, sclera anicteric, conjunctiva clear. ENT: Ears normal, nares patent, oropharynx clear without exudates. Moist mucous membranes. NECK: Normal range of motion, supple without lymphadenopathy, JVD, or masses. LUNGS: Breath sounds equal, clear to auscultation bilaterally. No wheezes, and no crackles. HEART:Regular rate and rhythm, normal S1 and S2 without murmur, rub or gallop. ABDOMEN: Soft, nontender, normoactive bowel sounds. No guarding, no rebound. EXTREMITIES: Normal range of motion, no edema. No clubbing or cyanosis. No erythema, or tenderness. NEUROLOGICAL: Cranial nerves II through XII grossly intact. Normal speech. No focal neurological deficits. MUSCULOSKELETAL: Back non-tender to palpation, no CVA tenderness SKIN: Warm, Dry, normal turgor, no rashes or lesions noted. (Arnaldo Mchugh) Heart Score/ECG Review <Arnaldo Mchugh - Last Filed: 04/02/17 18:42> #1 ECG reviewed & interpreted by me at: 20:00 <Meri Albarran - Last Filed: 04/03/17 09:10> #1 04/02/17 20:00 Sinus bradycardia, rate of 59 bpm [place] nml Intervals: pr: 164ms, QRS: 92ms, QTc: 421ms No st elevations or depressions LVH (Meri Albarran) ED Treatment Course - LABORATORY CBC & Chemistry Diagram: 04/02/17 17:16 04/02/17 17:16 <Meri Albarran - Last Filed: 04/03/17 09:10> - ADDITIONAL ORDERS Additional order review: 04/02/17 17:16 RBC 3.69 MCV 97.7 H MCHC 32.5 RDW 14.9 MPV 7.5 Neutrophils % 43.9 D Lymphocytes % 43.6 H D Monocytes % 8.7 Eosinophils % 3.0 D Basophils % 0.8 - RADIOLOGY Radiology Studies Ordered: Category Date Time Status CHEST X-RAY PORTABLE* [RAD] Stat Radiology 04/02/17 17:01 Completed - Medications Given in the ED: ED Medications Discontinued Medications Generic Name Dose Route Start Last Admin Trade Name Freq PRN Reason Stop Dose Admin Aspirin 162 mg 04/02/17 17:01 04/02/17 20:51 Asa - PO 04/02/17 17:02 162 mg ONCE ONE Administration Medical Decision Making <Arnaldo Mchugh - Last Filed: 04/02/17 18:42> <Meri Albarran - Last Filed: 04/03/17 09:10> - Medical Decision Making 04/02/17 18:35 A portion of this note was documented by scribe services under my direction. I have reviewed the details of the note, within reason, and agree with the documentation with the following case summary and management plan written by me. Nursing documentation reviewed and incorporated into medical decision making 04/02/17 19:57 This is an 86 yo F with a history of asthma, hypertension, hyperlipidemia, diabetes, PUD on PPI, osteoarthritis and dementia, who presents to the emergency department with chest pain 3.5 hours prior to presentation. 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 for 6 hours per day Her family will be locking her medications away as this is the SECOND time this has happened (Meri Albarran) *DC/Admit/Observation/Transfer <Arnaldo Mchugh - Last Filed: 04/02/17 18:42> <Meri Albarran - Last Filed: 04/03/17 09:10> Diagnosis at time of Disposition: Atypical chest pain - Discharge Dispostion Disposition: HOME - Referrals Referrals: Carie Summers MD [Primary Care Provider] - - Patient Instructions Printed Discharge Instructions: DI for Atypical Chest Pain Additional Instructions: Please follow up with your doctor tomorrow Print Language: FINNISH - Attestations Scribe Attestion: 04/02/17 18:43 Documentation prepared by Arnaldo Mchugh, acting as medical technologist blood bank for Meri Albarran MD (Arnaldo Mchugh)
[2017-04-02 20:34] LABS: BASOPHIL 0.8 % (0-2.0); MCH 31.8 pg (25.7-33.7); MCHC 32.5 g/dl (32.0-36.0); MEAN CELL VOLUME 97.7 fl (80-96); MEAN PLT VOLUME 7.5 fl (7.5-11.1); NEUTROPHILS 43.9 % (42.8-82.8); PLATELET COUNT 298 K/MM3 (134-434); RDW 14.9 % (11.6-15.6); WHITE BLOOD COUNT 5.5 K/mm3 (4.0-10.0)
[2017-04-02] MEDS ORDERED: ASPIRIN 81 MG CHEWABLE TABLETS ONE (20:48)
[2017-04-02 20:51] LABS: INR 0.98 (0.82-1.09); PROTHROMBIN TIME (PATIENT) 10.8 SEC (9.98-11.88)
[2017-04-02 20:51] LABS: ALBUMIN 3.9 g/dl (3.4-5.0); ANION GAP 6 (8-16); BILIRUBIN,TOTAL 0.2 mg/dL (0.2-1.0); CALCIUM 9.4 mg/dL (8.5-10.1); CO2 33 mmol/L (21-32); COCKROFT - GAULT 64.7955; CREATININE 0.6 mg/dL (0.55-1.02); GLUCOSE,RANDOM 95 mg/dL (74-106); MAGNESIUM 2.3 mg/dL (1.8-2.4); SGOT/AST 14 U/L (15-37); SGPT/ALT 15 U/L (12-78); TOT PROT 7.3 g/dl (6.4-8.2)
[2017-04-02 20:54] LABS: ALK PHOS 64 U/L (45-117); TROPONIN I < 0.02 ng/ml (0.00-0.05)
[2017-04-02 21:09] VITALS: BP 165/66; PULSE 59
--- NOTE | 2017-04-02 21:11 | PDOC ---
*Physical Exam - Vital Signs Last Vital Signs Temp Pulse Resp BP Pulse Ox 97.6 F 59 L 16 165/66 99 04/02/17 16:25 04/02/17 21:08 04/02/17 21:08 04/02/17 21:08 04/02/17 21:08 ED Treatment Course - LABORATORY CBC & Chemistry Diagram: 04/02/17 17:16 04/02/17 17:16 - ADDITIONAL ORDERS Additional order review: Laboratory Results 04/02/17 04/02/17 20:00 17:16 INR 0.98 Sodium 140 Potassium 4.6 Chloride 101 Carbon Dioxide 33 H Anion Gap 6 L BUN 13 Creatinine 0.6 Creat Clearance w eGFR > 60 Random Glucose 95 Calcium 9.4 Magnesium 2.3 D Total Bilirubin 0.2 AST 14 L D ALT 15 D Alkaline Phosphatase 64 Creatine Kinase 48 Troponin I < 0.02 B-Natriuretic Peptide 35.18 Total Protein 7.3 Albumin 3.9 04/02/17 17:16 RBC 3.69 MCV 97.7 H MCHC 32.5 RDW 14.9 MPV 7.5 Neutrophils % 43.9 D Lymphocytes % 43.6 H D Monocytes % 8.7 Eosinophils % 3.0 D Basophils % 0.8 - Medications Given in the ED: ED Medications Discontinued Medications Generic Name Dose Route Start Last Admin Trade Name Elicia PRN Reason Stop Dose Admin Aspirin 162 mg 04/02/17 17:01 04/02/17 20:51 Asa - PO 04/02/17 17:02 162 mg ONCE ONE Administration *DC/Admit/Observation/Transfer Diagnosis at time of Disposition: Atypical chest pain - Discharge Dispostion Disposition: HOME Condition at time of disposition: Stable Admit: No - Referrals Referrals: Carie Summers MD [Primary Care Provider] - - Patient Instructions Printed Discharge Instructions: DI for Atypical Chest Pain Additional Instructions: Please follow up with your doctor tomorrow Print Language: KITTITIAN - Post Discharge Activity
--- NOTE | 2017-04-03 13:27 | EKG ---
Test Reason : Blood Pressure : / mmHG Vent. Rate : 059 BPM Atrial Rate : 059 BPM P-R Int : 164 ms QRS Dur : 092 ms QT Int : 426 ms P-R-T Axes : 059 -14 049 degrees QTc Int : 421 ms SINUS BRADYCARDIA VOLTAGE CRITERIA FOR LEFT VENTRICULAR HYPERTROPHY ABNORMAL ECG WHEN COMPARED WITH ECG OF 16-MAR-2017 21:28, NO SIGNIFICANT CHANGE WAS FOUND Confirmed by ESTELITA JEAN-BAPTISTE MD ([id number]) on 04/03/2017 1:27:46 PM Referred By: Confirmed By:ESTELITA JEAN-BAPTISTE MD
== END 2017-04-02 21:49 | disposition home or self-care (01) ==
LOC: JER 16:25
DX: R07.89 Other chest pain (principal); I10 Essential (primary) hypertension; E78.00 Pure hypercholesterolemia, unspecified; E78.5 Hyperlipidemia, unspecified; E11.9 Type 2 diabetes mellitus without complications; J45.909 Unspecified asthma, uncomplicated; K27.9 Peptic ulcer, site unspecified, unspecified as acute or chronic, without hemorrhage or perforation; M19.90 Unspecified osteoarthritis, unspecified site; G30.8 Other Alzheimer's disease; F02.80 Dementia in other diseases classified elsewhere, unspecified severity, without behavioral disturbance, psychotic disturbance, mood disturbance, and anxiety
CPT/HCPCS: 36415; 71010-TC; 80053; 82550; 83735; 83880; 84484; 85025; 85610; 93005; 93010; 99285-25

== ENCOUNTER 2018-04-28 18:46 | Observation (INO) | payer MEDICARE, OTHER ==
[2018-04-28] MEDS ORDERED: ASPIRIN 81 MG CHEWABLE TABLETS PO ONE (19:39)
--- NOTE | 2018-04-28 19:41 | PDOC ---
History of Present Illness - General Chief Complaint: Weakness Stated Complaint: WEAKNESS Time Seen by Provider: 04/28/18 19:29 History Source: Patient - History of Present Illness Initial Comments: 04/28/18 19:43 87 year old female with past medical history of asthma, hypertension, hyperlipidemia, diabetes, PUD on PPI, osteoarthritis and dementia,complaining of Complains of midsternal chest pain started today. Patient reports she is unsure if she fell, patient is complaining of right arm pain and swelling. Denies head injury, normocephalic no neck pain. Denies nausea vomiting, abdominal pain. Patient was seen in this ED March 2018 for chest pain. Chart reviewed as per note patient had normal stress test recently. 04/29/18 00:16 Past History - Past Medical History Allergies/Adverse Reactions: Allergies Allergy/AdvReac Type Severity Reaction Status Date / Time Fish Containing Products Allergy Unknown Verified 03/16/17 20:10 Penicillins Allergy Itching Verified 03/16/17 20:10 Home Medications: Ambulatory Orders Memantine HCl [Namenda -] 10 mg PO DAILY 03/17/17 Metoprolol Tartrate 25 mg PO DAILY 03/17/17 Olmesartan/Hydrochlorothiazide [Benicar Hct 40-25 mg Tablet] 1 each PO DAILY Anemia: Yes Asthma: Yes Cancer: No Cardiac Disorders: No CVA: No COPD: No CHF: No Dementia: Yes (Alzheimer's) Diabetes: Yes (TYPE II) GI Disorders: Yes (DIVERTICULOSIS) Disorders: No HTN: Yes Hypercholesterolemia: Yes Liver Disease: No Seizures: No Thyroid Disease: No - Surgical History Abdominal Surgery: No Appendectomy: No Cardiac Surgery: No Cholecystectomy: No Lung Surgery: No Neurologic Surgery: No Orthopedic Surgery: No - Immunization History Immunization Up to Date: Yes - Suicide/Smoking/Psychosocial Hx Smoking Status: No Smoking History: Former smoker Have you smoked in the past 12 months: No Number of Cigarettes Smoked Daily: 0 If you are a former smoker, when did you quit?: 1970 Hx Alcohol Use: No Drug/Substance Use Hx: No Substance Use Type: None Hx Substance Use Treatment: No Review of Systems - Review of Systems Able to Perform ROS?: Yes Is the patient limited Filipino proficient: No Constitutional: Yes: Weakness. No: Symptoms Reported, See HPI, Chills, Diaphoresis, Fever, Loss of Appetite, Malaise, Night Sweats, Weight Stable, Unintentional Wgt. Loss, Unexplained wgt Loss, Other Cardiac (ROS): Yes: Chest Pain. No: Symptoms Reported, See HPI, Edema, Irregular Heart Rate, Lightheadedness, Palpitations, Syncope, Chest Tightness, Other Musculoskeletal: Yes: Other (right upper arm pain) *Physical Exam - Physical Exam General Appearance: Yes: Appropriately Dressed Respiratory/Chest: positive: Lungs Clear, Normal Breath Sounds. negative: Chest Tender Cardiovascular: positive: Regular Rhythm, Regular Rate, S1, S2 Female Pelvic Exam: positive: normal external exam Gastrointestinal/Abdominal: positive: Normal Bowel Sounds, Soft Extremity: positive: Normal Capillary Refill, Normal Inspection, Normal Range of Motion, Other (full rom to right upper arm) Integumentary: positive: Normal Color, Dry, Warm, Other (mild edema to right upper arm, tenderness to touch, full rom) Neurologic: positive: Fully Oriented, Alert, Normal Mood/Affect Heart Score/ECG Review - History History: Slightly suspicious - Electrocardiogram EKG: Normal - Age Age: >/= 65 - Risk Factors Risk Factors Heart Score: Yes Hx Hypercholesterolemia, Yes Hx Hypertension, Yes Hx Diabetes Based on the list above the patient has:: >/=3 risk factors or Hx atherosclerotic disease - Troponin Troponin: </= normal limit - Score Heart Score - Total: 4 - ECG Intrepretation Rhythm: Regular Rhythm Comment:: 04/28/18 20:48 NSR : 67bpm Qt/ QTc: 424/448 ms - QRS Measured at (milliseconds): 88 ED Treatment Course - LABORATORY CBC & Chemistry Diagram: 04/28/18 19:49 04/28/18 19:49 Medical Decision Making - Medical Decision Making 04/29/18 00:16 patient signed out to Ot[facility] / Dr. Frazier *DC/Admit/Observation/Transfer Diagnosis at time of Disposition: Dementia Qualifiers: Dementia type: unspecified type Dementia behavioral disturbance: without behavioral disturbance Qualified Code(s): F03.90 - Unspecified dementia without behavioral disturbance - Referrals Referrals: Carie Summers MD [Primary Care Provider] - - Patient Instructions - Post Discharge Activity
[2018-04-28 19:56] LABS: BASO % 0.6 % (0-2.0); EOS % 0.5 % (0-4.5); HEMOGLOBIN 13.4 GM/dL (10.7-15.3); LYMPH % 16.2 % (8-40); MCH 34.3 pg (25.7-33.7); MCHC 34.5 g/dl (32.0-36.0); MEAN CELL VOLUME 99.6 fl (80-96); MEAN PLT VOLUME 7.4 fl (7.5-11.1); MONO % 6.9 % (3.8-10.2); NEUT % 75.8 % (42.8-82.8); PLATELET COUNT 327 K/MM3 (134-434); RBC 3.91 M/mm3 (3.60-5.2); RDW 12.8 % (11.6-15.6); WHITE BLOOD COUNT 8.3 K/mm3 (4.0-10.0)
[2018-04-28] MEDS ORDERED: ASPIRIN COATED 81 MG TABLET.EC ONE (20:14)
[2018-04-28 20:31] LABS: ALBUMIN 4.3 g/dl (3.4-5.0); ANION GAP 11 (8-16); BILIRUBIN,TOTAL 0.4 mg/dL (0.2-1.0); BLOOD UREA NITROGEN 11 mg/dL (7-18); CALCIUM 8.8 mg/dL (8.5-10.1); CHLORIDE 97 mmol/L (98-107); CO2 25 mmol/L (21-32); CREATININE 0.5 mg/dL (0.55-1.02); GLUCOSE,RANDOM 103 mg/dL (74-106); SGPT/ALT 21 U/L (12-78); SODIUM 133 mmol/L (136-145); TOT PROT 8.1 g/dl (6.4-8.2)
[2018-04-28 20:34] LABS: ALK PHOS 76 U/L (45-117)
[2018-04-28 20:37] LABS: MAGNESIUM 2.1 mg/dL (1.8-2.4); POTASSIUM 4.4 mmol/L (3.5-5.1); SGOT/AST 26 U/L (15-37)
[2018-04-28 20:42] LABS: INR 1.03 (0.82-1.09); PROTHROMBIN TIME (PATIENT) 11.6 SEC (9.7-13.0)
[2018-04-28 22:41] LABS: URINE APPEARANCE CLEAR; URINE BILIRUBIN NEGATIVE (<2.0 mg/dL); URINE BLOOD NEGATIVE (NEGATIVE); URINE COLOR STRAW; URINE GLUCOSE (UA) NEGATIVE (NEGATIVE); URINE KETONE NEGATIVE (NEGATIVE); URINE LEUK ESTERASE NEGATIVE (NEGATIVE); URINE NITRITE NEGATIVE (NEGATIVE); URINE PROTEIN NEGATIVE (NEGATIVE); URINE UROBILINOGEN NEGATIVE mg/dL (0.2-1.0)
--- NOTE | 2018-04-28 23:38 | PN ---
Teaching Attending Note Name of Resident: Emiliano Singleton ATTENDING PHYSICIAN STATEMENT I saw and evaluated the patient. I reviewed the resident's note and discussed the case with the resident. I agree with the resident's findings and plan as documented. SUBJECTIVE: 87 year old woman with past medical history of asthma, hypertension, hyperlipidemia, diabetes, PUD on PPI, osteoarthritis and dementia, with chief complaint of midsternal chest pain started today. Patient reports she is unsure if she fell, patient is complaining of right arm pain and swelling. Denies head trauma, nausea vomiting, or abdominal pain. OBJECTIVE: Alert and in no acute distress. Vital Signs Period Temp Pulse Resp BP Sys/Nixon Pulse Ox Last 24 Hr 97.5 F-97.5 F 69-69 18-18 153-153/89-89 98-98 HEENT: No Jaundice, eye redness or discharge, PERRLA, EOMI. Normocephalic, atraumatic. External ears are normal and hearing is grossly intact. No nasal discharge. Neck: Supple, nontender. No palpable adenopathy or thyromegaly. No JVD Chest: Good effort. Clear to auscultation and percussion. Heart: Regular. No S3, rub or murmur Abdomen: Not distended, soft, nontender and no HSM. No rebound or guarding. Normoactive bowel sounds. Ext: Right upper arm tenderness with limited ROM of right shoulder. Peripheral pulses intact. No leg edema. Skin: Warm and dry. No petechiae, rash or ecchymosis. Neuro: Alert. Oriented to person. CN 2-12 grossly intact. Sensation grossly intact in all four extremities and DTR are symmetric. Home Medications Medication Instructions Recorded Memantine HCl [Namenda -] 10 mg PO DAILY 03/17/17 Metoprolol Tartrate 25 mg PO DAILY 03/17/17 Olmesartan/Hydrochlorothiazide 1 each PO DAILY 03/17/17 [Benicar Hct 40-25 mg Tablet] Abnormal Lab Results 04/28/18 04/28/18 19:49 19:49 MCV 99.6 H MCH 34.3 H MPV 7.4 L Sodium 133 L Chloride 97 L Creatinine 0.5 L Current Medications Generic Name Dose Route Start Last Admin Trade Name Freq PRN Reason Stop Dose Admin Acetaminophen 650 mg 04/29/18 02:37 Tylenol - PO Q4H PRN PAIN LEVEL 1-5 Enoxaparin Sodium 40 mg 04/29/18 10:00 Lovenox - SQ DAILY [facility] ASSESSMENT AND PLAN: 1. Atypical Chestpain - Will admit as an observation case to rule out ACS. Thus far no significant EKG changes and no evidence of fracture. 2. Fall - Possible right shoulder joint dislocation with arthritic changes. Will consult Ortho and give tylenol for pain. Obtain C-spine CT scan in view of bilateral arm pain.. 3. Uncontrolled hypertension - Restart regular antihypertensive drugs. 4. DVT prophylaxis - Lovenox 40 mg sq q 24 hours 5. Advance directives - Full code
--- NOTE | 2018-04-29 01:42 | HP ---
CHIEF COMPLAINT: headache and left arm pain PCP: Carie Estrella Historian: pt (unreliable due to dementia) and EMR. Spoke to pt with historical interpreter. HISTORY OF PRESENT ILLNESS: 87F w/ hx of HTN, HLD, DM, and dementia who presents with headache and left arm pain. Per pt, she fell about a month and a half ago, and that is when her arm pain began. She denied hitting her head or any LOC. The pain has been on and off since then, and it is relieved by stretching. Pt unable to state severity of pain, whether it radiates, and quality of pain. She states that her headache began a few days ago. Today, she states that her symptoms were a little worse prompting her to come to the hospital. Per ED note, pt complained of right arm pain and chest pain. Per pt, she states that her chest pain comes and goes and is associated with fear and mild SOB, but no diaphoresis or lightheadedness. It occurs at rest, not with exertion. Pt denies fevers, chills, current SOB or chest pain, abdominal pain, n/v/d/c, and dysuria. Of note, pt sees Dr. Quintero, her computer repairer. Per EMR, pt presented with chest pain in March of 2018, and was discharged from ED. She also had a stress test which was normal. Her last echo in the EMR is from 04/2015 which shows no gross abnormalities. ER course was notable for: (1) normal trop and EKG (2) right humeral XR (3) Recent Travel: no PAST MEDICAL HISTORY: as stated above in addition to asthma, PUD, and OA PAST SURGICAL HISTORY: denies Social History: Smoking: no Alcohol: no Drugs: no Per EMR, pt lives alone, and has the help of a MEDICAL PRACTICE MANAGER for 6 hours a day Family History: Pt states that she is unsure. Allergies Fish Containing Products Allergy (Unknown, Verified 03/16/17 20:10) Penicillins Allergy (Verified 03/16/17 20:10) Itching HOME MEDICATIONS: Home Medications Medication Instructions Recorded Memantine HCl [Namenda -] 10 mg PO DAILY 03/17/17 Metoprolol Tartrate 25 mg PO DAILY 03/17/17 Olmesartan/Hydrochlorothiazide 1 each PO DAILY 03/17/17 [Benicar Hct 40-25 mg Tablet] REVIEW OF SYSTEMS CONSTITUTIONAL: Absent: fever, chills, diaphoresis, generalized weakness, malaise, loss of appetite, weight change HEENT: Absent: rhinorrhea, nasal congestion, throat pain, throat swelling, difficulty swallowing, mouth swelling, ear pain, eye pain, visual changes CARDIOVASCULAR: Absent: syncope, palpitations, irregular heart rate, lightheadedness, peripheral edema present: chest pain RESPIRATORY: Absent: cough, shortness of breath, dyspnea with exertion, orthopnea, wheezing, stridor, hemoptysis GASTROINTESTINAL: Absent: abdominal pain, abdominal distension, nausea, vomiting, diarrhea, constipation, melena, hematochezia GENITOURINARY: Absent: dysuria, frequency, urgency, hesitancy, hematuria, flank pain, genital pain MUSCULOSKELETAL: Absent: back pain present: left arm pain SKIN: Absent: rash, itching, pallor HEMATOLOGIC/IMMUNOLOGIC: Absent: easy bleeding, easy bruising, lymphadenopathy, frequent infections ENDOCRINE: Absent: unexplained weight gain, unexplained weight loss, heat intolerance, cold intolerance NEUROLOGIC: Absent: headache, focal weakness or paresthesias, dizziness, unsteady gait, seizure, mental status changes, bladder or bowel incontinence PSYCHIATRIC: Absent: anxiety, depression, suicidal or homicidal ideation, hallucinations. PHYSICAL EXAMINATION GENERAL: elderly female, sitting in bed, awake, alert, in no acute distress. HEENT: NC, AT LUNGS: Breath sounds equal, clear to auscultation bilaterally. No wheezes, and no crackles. No accessory muscle use. HEART: Regular rate and rhythm, normal S1 and S2 without murmur, rub or gallop. ABDOMEN: Soft, nontender, not distended, normoactive bowel sounds, no guarding, no rebound, no masses. No hepatomegaly or splenomegaly. MUSCULOSKELETAL: no LE edema b/l. left arm has normal ROM and 5/5 strength. no tenderness to palpation. no bruises. NEUROLOGICAL: Cranial nerves II-XII intact. Normal speech Laboratory Results - last 24 hr 04/28/18 04/28/18 04/28/18 19:49 19:49 19:49 WBC 8.3 D RBC 3.91 Hgb 13.4 D Hct 39.0 MCV 99.6 H MCH 34.3 H MCHC 34.5 RDW 12.8 D Plt Count 327 MPV 7.4 L Absolute Neuts (auto) 6.3 Neutrophils % 75.8 D Lymphocytes % 16.2 D Monocytes % 6.9 Eosinophils % 0.5 D Basophils % 0.6 Nucleated RBC % 0 PT with INR 11.60 INR 1.03 Sodium 133 L Potassium 4.4 Chloride 97 L Carbon Dioxide 25 Anion Gap 11 BUN 11 Creatinine 0.5 L Creat Clearance w eGFR > 60 Random Glucose 103 Calcium 8.8 Magnesium 2.1 Total Bilirubin 0.4 D AST 26 ALT 21 Alkaline Phosphatase 76 Creatine Kinase 95 Troponin I < 0.02 B-Natriuretic Peptide Total Protein 8.1 Albumin 4.3 Urine Color Urine Appearance Urine pH Ur Specific [place] Urine Protein Urine Glucose (UA) Urine Ketones Urine Blood Urine Nitrite Urine Bilirubin Urine Urobilinogen Ur Leukocyte Esterase 04/28/18 04/28/18 19:49 22:29 WBC RBC Hgb Hct MCV MCH MCHC RDW Plt Count MPV Absolute Neuts (auto) Neutrophils % Lymphocytes % Monocytes % Eosinophils % Basophils % Nucleated RBC % PT with INR INR Sodium Potassium Chloride Carbon Dioxide Anion Gap BUN Creatinine Creat Clearance w eGFR Random Glucose Calcium Magnesium Total Bilirubin AST ALT Alkaline Phosphatase Creatine Kinase Troponin I B-Natriuretic Peptide 51.15 Total Protein Albumin Urine Color Straw Urine Appearance Clear Urine pH 8.0 Ur Specific [place] 1.010 Urine Protein Negative Urine Glucose (UA) Negative Urine Ketones Negative Urine Blood Negative Urine Nitrite Negative Urine Bilirubin Negative Urine Urobilinogen Negative Ur Leukocyte Esterase Negative ASSESSMENT/PLAN: 87F w/ hx of HTN, HLD, DM, and dementia who presents with worsening headache and left arm pain after fall 6 weeks ago. #arm pain -likely 2/2 fall a month and a half ago -f/u left and right humeral XRs. Right humeral XR might show dislocation. Consult ortho if official read states that. -tylenol PRN -f/u CT C-spine to r/o nerve impingement causing arm pain. -obtain collateral info from family member as pt is unreliable historian #chest pain- r/o ACS -1st trop negative. EKG: NSR -f/u serial trops and EKGs -cardiology consulted, Dr. Vazquez -cardiac telemetry #headache -head CT: no acute pathology -tylenol PRN #dementia -continue home memantine 10mg daily -confirm dose #HTN -continue home metoprolol 2.5mg daily -continue olemsartan/HCTZ 40-25 -confirm dose #asthma -no current SOB or wheezing -confirm if pt takes meds for it #HLD -confirm if pt takes med for it #DM -confirm if pt takes any meds for it #PUD -confirm if pt takes any meds for it #FEN/ppx -no IVF -electrolytes wnl -NPO -no GI ppx indicated -lovenox #Dispo -admit to obs/tele Case discussed with attending, Dr. Frazier. -Emiliano Singleton MD PGY1 Visit type - Emergency Visit Emergency Visit: Yes ED Registration Date: 04/29/18 Care time: The patient presented to the Emergency Department on the above date and was hospitalized for further evaluation of their emergent condition. - New Patient This patient is new to me today: Yes Date on this admission: 04/29/18 - Critical Care Critical Care patient: No Hospitalist Screening - Colonoscopy Questionnaire Colonoscopy Questionnaire: Colonoscopy Questionnaire - Patient: 50 - 75 years old and never had a screening colonoscopy: Unknown History of colon or rectal polyps, or CA: Unknown History of IBD, Crohn's disease or UC: Unknown History of abdominal radiation therapy as a child: Unknown - Relative: 1 with colon or rectal CA, or polyps at age 60 or younger: Unknown Colon or rectal CA diagnosed at age 45 or younger: Unknown Multiple relatives with colon or rectal CA: Unknown - Outcome: Screening Result: Negative Screen
[2018-04-29] MEDS ORDERED: ACETAMINOPHEN 325 MG TABLET (FP) PO PRN (02:37)
[2018-04-29 02:56] VITALS: BMI 24.2
[2018-04-29 06:52] LABS: EOS % 0.6 % (0-4.5); HEMATOCRIT 38.3 % (32.4-45.2); HEMOGLOBIN 13.1 GM/dL (10.7-15.3); LYMPH % 22.9 % (8-40); MCH 34.6 pg (25.7-33.7); MCHC 34.3 g/dl (32.0-36.0); MEAN CELL VOLUME 100.8 fl (80-96); MEAN PLT VOLUME 7.5 fl (7.5-11.1); MONO % 8.9 % (3.8-10.2); NEUT % 66.6 % (42.8-82.8); PLATELET COUNT 330 K/MM3 (134-434); RBC 3.79 M/mm3 (3.60-5.2); WHITE BLOOD COUNT 7.6 K/mm3 (4.0-10.0)
[2018-04-29 07:21] LABS: CHLORIDE 103 mmol/L (98-107); POTASSIUM 4.4 mmol/L (3.5-5.1); SODIUM 139 mmol/L (136-145)
[2018-04-29 08:49] LABS: ALBUMIN 4.3 g/dl (3.4-5.0); ALK PHOS 72 U/L (45-117); BILIRUBIN,TOTAL 0.4 mg/dL (0.2-1.0); BLOOD UREA NITROGEN 11 mg/dL (7-18); CALCIUM 9.9 mg/dL (8.5-10.1); CREATININE 0.6 mg/dL (0.55-1.02); GLUCOSE,RANDOM 91 mg/dL (74-106); SGOT/AST 22 U/L (15-37); TOT PROT 7.8 g/dl (6.4-8.2)
[2018-04-29 09:40] LABS: ANION GAP 10 (8-16); CO2 26 mmol/L (21-32)
[2018-04-29] MEDS ORDERED: METOPROLOL TARTRATE 25 MG TABLET (FP) PO SCH (10:00)
[2018-04-29] MEDS ORDERED: ENOXAPARIN NA (PORCINE) 40 MG/0.4 ML DISP.SYRIN SQ SCH (10:00)
[2018-04-29] MEDS ORDERED: MONTELUKAST NA 10 MG TABLET PO SCH (10:00)
[2018-04-29] MEDS ORDERED: ACETAMINOPHEN 325 MG TABLET (FP) ONE (10:31)
--- NOTE | 2018-04-29 12:02 | CON.CARD ---
Consult Consult Specialty:: Cardiology Referred by:: Hospitalist Reason for Consultation:: Chest pain - History of Present Illness Chief Complaint: chest pain, arm pain, headache History of Present Illness: 86 year old woman h/o HTN, HLD, DMII, asthma, PUD, dementia, h/o atypical chest pain and normal stress test recently admitted with chest pain, headache, arm pain. Pt seen and examined in the ER. denies any further chest pain, no sob, no pnd, orthopnea, or le edema. 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 Cardio/Vascular: Yes: HTN Gastrointestinal: Yes: Constipation Infectious Disease: Yes: Herpes Zoster (Left lower flank are with erythema based papules) Endocrine: Yes: Diabetes Mellitus - Past Surgical History Past Surgical History: Yes: None - Alcohol/Substance Use Hx Alcohol Use: No History of Substance Use: reports: None - Smoking History Smoking history: Never smoked Have you smoked in the past 12 months: No Aproximately how many cigarettes per day: 0 If you are a former smoker, when did you quit?: 1970 - Social History History of Recent Travel: No Home Medications - Allergies Allergies/Adverse Reactions: Allergies Allergy/AdvReac Type Severity Reaction Status Date / Time Fish Containing Products Allergy Unknown Verified 03/16/17 20:10 Penicillins Allergy Itching Verified 03/16/17 20:10 - Home Medications Home Medications: Ambulatory Orders Memantine HCl [Namenda -] 10 mg PO DAILY 03/17/17 Metoprolol Tartrate 25 mg PO DAILY 03/17/17 Amlodipine Besylate 5 mg DAILY 04/29/18 Ipratropium 0.02% Nebulizer [Atrovent] 2 neb NEB Q6H PRN 04/29/18 Montelukast Na [Singulair -] 10 mg DAILY 04/29/18 Olmesartan Medoxomil [Benicar] 20 mg PO DAILY 04/29/18 Omeprazole 20 mg PO DAILY 04/29/18 Ranolazine [Ranexa] 1,000 mg PO DAILY 04/29/18 Sitagliptin Phosphate [Januvia] 50 mg PO DAILY 04/29/18 Family Disease History - Family Disease History Family Disease History: Other: Father (), Mother () Review of Systems - Review of Systems Constitutional: denies: No Symptoms, Chills, Diaphoresis, Fever, Lethargy, Loss of Appetite, Malaise, Night Sweats, Unintentional Wgt. Loss, Weakness, Other Eyes: denies: No Symptoms, Blind Spots, Blurred Vision, Double Vision, Eye Pain , Floaters, Photophobia, Recent Change in Vision, Other HENT: denies: No Symptoms, Difficult Swallowing, Ear Discharge, Ear Pain, Epistaxis, Gingival Bleeding, Hearing Loss, Mouth Swelling, Nasal Congestion, Ocular Prosthesis, Throat Pain, Toothache, Ringing in Ears, Other Neck: denies: No Symptoms, Decreased ROM, Lumps, Pain on Movement, Stiffness, Swollen Glands, Tenderness, Other Cardiovascular: reports: Chest Pain. denies: No Symptoms, Edema, Palpitations, Shortness of Breath, Other Respiratory: reports: Cough. denies: No Symptoms, Exercise Intolerance, Hemoptysis, Orthopnea, PND, Snoring, SOB, SOB on Exertion, Wheezing, Other Gastrointestinal: reports: Indigestion. denies: No Symptoms, Abdominal Pain, Bloating, Constipation, Diarrhea, Dysphagia, Melena, Nausea, Rectal Bleeding, Vomiting, Vomiting Blood, Other Genitourinary: denies: No Symptoms, Burning, Discharge, Dysuria, Flank Pain, Frequency, Hematuria, Incontinence, Lesions, Menses, Pain, Testicular Mass, Testicular Pain, Testicular Swelling, Urgency, Vaginal Bleeding, Other Breasts: denies: No Symptoms Reported, See HPI, Breast Implants, Discharge from Nipple, Lumps, Pain, Skin Changes, Other Musculoskeletal: reports: Extremity Pain, Joint Pain. denies: No Symptoms, Back Pain, Crepitus, Decreased ROM, Joint Swelling, Muscle Pain, Muscle Cramps, Muscle Weakness, Other Integumentary: denies: No Symptoms, Blister, Bruising, Change in Color, Eczema, Erythema, Incision, Lesions, Lump, Pallor, Pruritis, Rash, Wound, Other Neurological: denies: No Symptoms, Change in LOC, Change in Speech, Confusion, Dizziness, Headache, Incoordination, Numbness, Parasthesia, Pre-Existing Deficit , Seizure, Syncope, Tremors, Unsteady Gait, Weakness, Other Endocrine: denies: No Symptoms, Excessive Sweating, Flushing, Increased Hunger, Increased Thirst, Intolerance to Cold, Intolerance to Heat, Unexplained Weight Gain, Unexplained Weight Loss, Other Hematology/Lymphatic: denies: No Symptoms, Easily Bruised, Excessive Bleeding, Swollen Glands, Other Psychiatric: denies: No Symptoms, Altered Sleep Pattern, Anxiety, Depression, Hallucinations, Panic, Paranoia, Suicidal, Other - Risk Factors Known Risk Factors: Yes: Age, Diabetes Mellitus, Hypercholesterolemia, Hypertension Vital Signs: Vital Signs Temperature 97.9 F 04/29/18 09:17 Pulse Rate 71 04/29/18 09:17 Respiratory Rate 20 04/29/18 09:17 Blood Pressure 132/79 04/29/18 09:17 O2 Sat by Pulse Oximetry (%) 98 04/29/18 09:18 Constitutional: Yes: No Distress, Calm Eyes: Yes: Conjunctiva Clear, EOM Intact, PERRL HENT: Yes: Atraumatic, Normocephalic Neck: Yes: Supple, Trachea Midline Respiratory: Yes: Regular, CTA Bilaterally. No: Rales, Rhonchi, SOB, Wheezes Gastrointestinal: Yes: Normal Bowel Sounds, Soft. No: Distention, Tenderness Cardiovascular: Yes: Regular Rate and Rhythm. No: Bradycardia, Tachycardia, Pulse Irregular, Gallop, Rub, Varicosities JVD: No Carotid Bruit: No PMI: Non-Displaced Heart Sounds: Yes: S1, S2. No: Split S2, S3, S4, Clicks, Gallop, Rub, Bruit Murmur: No: Systolic Murmur, Diastolic Murmur Musculoskeletal: Yes: WNL Extremities: Yes: WNL Edema: No Peripheral Pulses WNL: Yes Neurological: Yes: Alert Psychiatric: Yes: Alert - Other Data Labs, Other Data: CBC, BMP 04/29/18 06:20 04/29/18 06:20 INR, PTT INR 1.03 (0.82-1.09) 04/28/18 19:49 Troponin, BNP 04/28/18 04/28/18 04/29/18 19:49 19:49 04:50 Troponin I < 0.02 < 0.02 B-Natriuretic Peptide 51.15 04/29/18 06:20 Troponin I < 0.02 B-Natriuretic Peptide Troponin, BNP 04/28/18 04/28/18 04/29/18 19:49 19:49 04:50 Troponin I < 0.02 < 0.02 B-Natriuretic Peptide 51.15 04/29/18 06:20 Troponin I < 0.02 B-Natriuretic Peptide EKG-NSR 61bpm, LVH, nsst Imaging - Results Chest X-ray: Report Reviewed, Image Reviewed EKG: Report Reviewed, Image Reviewed Assessment/Plan 87 year old woman h/o HTN, HLD, DMII, asthma, PUD, dementia, h/o atypical chest pain and normal stress test recently admitted with chest pain, headache, arm pain. Chest pain-atypical, unlikely ACS, chronic atypical chest pain with normal stress test in the past -cardiac enzymes wnl -no ischemia on ekg -chest pain resolved -no additional inpatient cardiac work up is needed at this point -[facility] outpatient f/up -can dc tele Please call with any additional questions.
--- NOTE | 2018-04-29 12:48 | EKG ---
Test Reason : Blood Pressure : / mmHG Vent. Rate : 061 BPM Atrial Rate : 061 BPM P-R Int : 160 ms QRS Dur : 088 ms QT Int : 434 ms P-R-T Axes : 054 -17 030 degrees QTc Int : 436 ms NORMAL SINUS RHYTHM VOLTAGE CRITERIA FOR LEFT VENTRICULAR HYPERTROPHY NONSPECIFIC T WAVE ABNORMALITY ABNORMAL ECG Confirmed by MD HAN, NETO ([id number]) on 04/29/2018 12:47:52 PM Referred By: Confirmed By:NETO SHORT MD
[2018-04-29] MEDS ORDERED: MEMANTINE HCL 10 MG TABLET (FP) PO SCH (12:51)
[2018-04-29] MEDS ORDERED: PANTOPRAZOLE 20 MG TABLET (FP) PO SCH (12:52)
[2018-04-29 12:54] LABS: SGPT/ALT 21 U/L (12-78)
--- NOTE | 2018-04-29 12:59 | PN ---
Teaching Attending Note Name of Resident: Cinthya Gonzales ATTENDING PHYSICIAN STATEMENT I saw and evaluated the patient. I reviewed the resident's note and discussed the case with the resident. I agree with the resident's findings and plan as documented. 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 daughter states that she complained of shoulder painand BP was checked by VNS to be found 150 /80 so the patient was sent here . fall 3 weeks ago. she lives alone with VNS and daughter checks on her . OBJECTIVE: NAD , confused not oriented ,pleasant and cooperative . MMM, no JVD. CV: RRR, 2/6 SM at at LUSB. \Lungs: CTAB ext: no erythema or kobe aover R shoulder. can abduct R shoulder to 100 degrees, limited y pain. nl flexion and extension . Abd: soft, Nt, ND , NL BS Ext: no edema or erythema ASSESSMENT AND PLAN: 87 y/o lady with h/o HTN, CAD , DM , PUD, Asthma , OA and dementia and chronic R shoulder pain who presented with R shoulder pain and questionable chest pain 1- questionable chest pain, as pt is demented. daughter denied any cp. EKG with with no ischemic changes. trop Nl BP controlled f/u with card as outpt will confirm meds and cont her cardiac meds . pharmacy number obtained 2- R shoulder pain. xray with OA at humerus head. might have tendenopathy or tendonitis but no fractures . f/u with ortho and PCP carin OT 3- HTN: evita conform meds. cont Bb and norvasc for now 4- dispo : dc home today
--- NOTE | 2018-04-29 13:15 | EKG ---
Test Reason : Blood Pressure : / mmHG Vent. Rate : 067 BPM Atrial Rate : 067 BPM P-R Int : 170 ms QRS Dur : 088 ms QT Int : 424 ms P-R-T Axes : 058 -16 042 degrees QTc Int : 448 ms NORMAL SINUS RHYTHM VOLTAGE CRITERIA FOR LEFT VENTRICULAR HYPERTROPHY CANNOT RULE OUT SEPTAL INFARCT , AGE UNDETERMINED ABNORMAL ECG WHEN COMPARED WITH ECG OF 02-APR-2017 16:42, NO SIGNIFICANT CHANGE WAS FOUND Confirmed by MD RAYSHAWN, ERROL ([id number]) on 04/29/2018 1:14:59 PM Referred By: Confirmed By:ERROL TABARES MD
[2018-04-29] MEDS ORDERED: METOPROLOL TARTRATE 25 MG TABLET (FP) PO ONE (14:08)
[2018-04-29 14:34] VITALS: BP 136/72; PULSE 73; TEMP 98.2
--- NOTE | 2018-04-29 21:42 | DS ---
Physical Exam: SUBJECTIVE: Patient seen and examined at bedside. C/o R shoulder pain, however denies chest pain or pressure. OBJECTIVE: Vital Signs Period Temp Pulse Resp BP Sys/Nixon Pulse Ox Last 24 Hr 97.5 F-98.2 F 62-73 18-20 132-153/65-89 98-98 PHYSICAL EXAM GENERAL: The patient is resting in bed. awake, alert, and fully oriented, in no acute distress. HEAD: Normal with no signs of trauma. EYES: PERRL, extraocular movements intact, sclera anicteric, conjunctiva clear. ENT: Ears normal, nares patent, oropharynx clear without exudates, moist mucous membranes. NECK: Trachea midline, supple. LUNGS: Breath sounds equal, clear to auscultation bilaterally, no wheezes, no crackles, no accessory muscle use. HEART: Regular rate and rhythm, S1, S2 without murmur, rub or gallop. ABDOMEN: Soft, obese, nontender, nondistended, normoactive bowel sounds, no guarding, no rebound EXTREMITIES: 2+ dp,pt pulses, warm, well-perfused, no edema. NEUROLOGICAL: Cranial nerves II through XII grossly intact. MSK: +diffusely TTP- R GH joint. Able to abduct, adduct PSYCH: Normal mood, normal affect. SKIN: Warm, dry, normal turgor LABS Laboratory Results - last 24 hr 04/28/18 04/29/18 04/29/18 22:29 04:50 06:20 WBC 7.6 RBC 3.79 Hgb 13.1 Hct 38.3 MCV 100.8 H MCH 34.6 H MCHC 34.3 RDW 13.0 Plt Count 330 MPV 7.5 Absolute Neuts (auto) 5.1 Neutrophils % 66.6 Lymphocytes % 22.9 D Monocytes % 8.9 Eosinophils % 0.6 Basophils % 1.0 Nucleated RBC % 0 Total Protein Urine Color Straw Urine Appearance Clear Urine pH 8.0 Ur Specific [place] 1.010 Urine Protein Negative Urine Glucose (UA) Negative Urine Ketones Negative Urine Blood Negative Urine Nitrite Negative Urine Bilirubin Negative Urine Urobilinogen Negative Ur Leukocyte Esterase Negative 04/29/18 04/29/18 04/29/18 06:20 06:20 11:36 Nucleated RBC % Sodium 139 Potassium 4.4 Chloride 103 Carbon Dioxide 26 Anion Gap 10 BUN 11 Creatinine 0.6 Creat Clearance w eGFR > 60 POC Glucometer [id number] Random Glucose 91 Calcium 9.9 Total Bilirubin 0.4 AST 22 ALT 21 Alkaline Phosphatase 72 Total Protein 7.8 Urine Urobilinogen Troponin trend 04/28/18 04/29/18 04/29/18 19:49 04:50 06:20 Troponin I < 0.02 < 0.02 < 0.02 Microbiology -04/28/18: UCx: pending Imaging -04/28/18: CXR: no evidence of PNA, CHF, pleural effusion or pneumothorax. 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 -04/28/18: R humerus XR: arthritic changes, R humeral head -04/28/18: Head CT non-con: no acute intracranial pathology -04/29/18: CT spine w/o contrast: no evidence of acute fx, compression deformities , subluxation, prevertebral soft tissue swelling -04/29/18: L humerus XR: no fx -04/29/18: XR L shoulder: no evidence glenohumeral joint dislocation. No acute fx HOSPITAL COURSE: Date of Admission:04/29/18 Date of Discharge: 04/29/18 Admission diagnosis: atypical chest pain, shoulder pain 87 y/o F w/ hx of HTN, HLD, DM, and dementia who presented on admission with headache and left arm pain. Per pt, she fell about a month and a half prior, and that is when her arm pain began. She denied hitting her head or any LOC. The pain has been intermittent ever since, and is relieved by stretching. Pt unable to state severity of pain, whether it radiates, and quality of pain. She states that her headache began 2-3 days prior to admission as well. On day of admission, pt sx were worsened, so she came to the ED for further evaluation. Pt admitted for atypical chest pain, shoulder pain. While maintained on the floor, pt's troponins were negative x2, and EKG did not show ischemic changes. Pt's BP was controlled adequately and she was d/c with cardio follow-up as outpatient. 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 She is recommended PCP, ortho f/u , as well as tylenol and ice application for sx relief. Minutes to complete discharge: 44 Discharge Summary Reason For Visit: DEMENTIA Condition: Stable - Instructions Diet, Activity, Other Instructions: You were in the hospital because you had chest pain and shoulder pain. While you were here, you had a shoulder x-ray, arm x-ray (humerus), CT scan of the neck. You did not have any fracture or dislocation. However, you were found to have arthritis in your right shoulder. You also had testing done for your heart, since you had chest pain. This testing was negative for any damage to your heart. Your visit -You were seen by the : medicine team, cardiology team Medications -You may continue your home medications -you may take Tylenol 650mg (one pill) every six hours, as needed for shoulder pain. You may also apply an ice pack for 10-15 minutes to the area for relief. Doctor Follow-up -please follow-up with your primary care doctor, Dr. Velez in 1 week -Also follow up with Dr. Spivey, an transfer specialist - 1 week for your shoulder pain. Or you may follow up with your own orthopedic doctor. -Follow up with Dr. Quintero, a brand marketing manager - 1 week for chest pain Additional -please take precautions while walking to avoid falls. If you develop chest pain, or shortness of breath, please go to the hospital. We hope you feel better soon. Referrals: Laith Spivey MD [Staff Physician] - 1 Week Snicere Quintero MD [Staff Physician] - 1 Week Carie Summers MD [Primary Care Provider] - 1 Week Disposition: HOME - Home Medications Comprehensive Discharge Medication List: Ambulatory Orders Memantine HCl [Namenda -] 10 mg PO DAILY 03/17/17 Metoprolol Tartrate 25 mg PO DAILY 03/17/17 Acetaminophen [Tylenol .Regular Strength -] 650 mg PO Q6H PRN #28 tablet Amlodipine Besylate 5 mg DAILY 04/29/18 Ipratropium 0.02% Nebulizer [Atrovent 0.02% Nebulizer -] 2 neb NEB Q6H PRN 04/29 Montelukast Na [Singulair -] 10 mg DAILY 04/29/18 Olmesartan Medoxomil [Benicar] 20 mg PO DAILY 04/29/18 Omeprazole 20 mg PO DAILY 04/29/18 Ranolazine [Ranexa] 1,000 mg PO DAILY 04/29/18 Sitagliptin Phosphate [Januvia] 50 mg PO DAILY 04/29/18 This patient is new to me today: Yes Date on this admission: 04/29/18 Emergency Visit: No Critical Care patient: No - Discharge Referral Referred to [facility] No
[2018-04-30] MEDS ORDERED: sitaGLIPtin PHOSPHATE 50 MG TABLET PO SCH ×2 (07:00→10:00)
[2018-04-30] MEDS ORDERED: RANOLAZINE E.R. 1,000 MG TABLET (FP) PO SCH (10:00)
[2018-04-30] MEDS ORDERED: VALSARTAN 160 MG TABLET (UD) PO SCH (10:00)
[2018-04-30] MEDS ORDERED: MEMANTINE HCL 10 MG TABLET (FP) PO SCH (10:00)
[2018-04-30] MEDS ORDERED: PATIENT'S OWN MEDICATION (NON-FORMULARY) (Olmesartan Medoxomil [Benicar] 20 MG) PO SCH (10:00)
[2018-04-30] MEDS ORDERED: amLODIPine BESYLATE 5 MG TABLET (FP) PO SCH (10:00)
[2018-04-30] MEDS ORDERED: PATIENT'S OWN MEDICATION (NON-FORMULARY) (Omeprazole [Omeprazole] 20 MG) PO SCH (10:00)
== END 2018-04-29 16:30 | disposition home or self-care (01) ==
LOC: JER 18:46 → JERBED 04-29 00:19 → J7W 04-29 13:21
PROVIDERS: ADMIT Internal Medicine; ATTEND Internal Medicine
PROC: 3E013GC Introduction of Other Therapeutic Substance into Subcutaneous Tissue, Percutaneous Approach (ICD-10-PCS; principal; 2018-04-29)
DX: F03.90 Unspecified dementia, unspecified severity, without behavioral disturbance, psychotic disturbance, mood disturbance, and anxiety (principal); R07.89 Other chest pain; I10 Essential (primary) hypertension; E78.5 Hyperlipidemia, unspecified; E11.9 Type 2 diabetes mellitus without complications; J45.909 Unspecified asthma, uncomplicated; K27.9 Peptic ulcer, site unspecified, unspecified as acute or chronic, without hemorrhage or perforation; M19.90 Unspecified osteoarthritis, unspecified site; D64.9 Anemia, unspecified; M79.601 Pain in right arm; R51 Headache; Z87.891 Personal history of nicotine dependence; Z88.0 Allergy status to penicillin; Z91.013 Allergy to seafood
CPT/HCPCS: 36415; 70450-TC; 71046-TC-FY; 72125-TC; 73030-TC-LT-FY; 73060-TC-LT-FY; 73060-TC-RT-FY; 80053; 81003; 82550; 82962; 83735; 83880; 84484; 85025; 85610; 87086; 93005; 93010; 96372; 97116-GP; 97161-GP; 99285-25; G0378

== ENCOUNTER 2019-05-04 10:40 | Emergency (ER) | payer MEDICARE, OTHER | END 2019-05-04 13:32 | disposition home or self-care (01) | LOC: JER 10:40 ==